=== PATIENT | female | born 1960 | race Caucasian/White ===

== ENCOUNTER 2024-01-11 09:30 | Outpatient (CLI) | payer BC, SELFPAY ==
[2024-01-11 18:57] LABS: Basophils # 0.2 K/mm3 (0-0.2); Basophils % 1.5 % (0.1-2.0); Eosinophils # 0.1 K/mm3 (0.0-0.4); Eosinophils % 1.2 % (0.1-12.0); Hematocrit 47.1 % (37.0-47.0); Lymphocytes # 6.2 K/mm3 (0.7-4.5); Lymphocytes % 55.8 % (10-50); MANUAL DIFFERENTIAL MANUAL DIFFERENTIAL (MANUAL DIFF); Mean Corpuscular HGB Conc 31.9 g/dL (31.8-35.4); Mean Corpuscular Hemoglobin 31.2 pg (27.0-31.2); Mean Corpuscular Volume 97.7 fl (81-99); Monocytes # 0.3 K/mm3 (0.1-1.0); Monocytes % 2.7 % (1.7-9.3); Neutrophils # 4.3 K/mm3 (1.8-7.8); Neutrophils % 38.7 % (37.0-80.0); Platelet Count 275 K/mm3 (142-424); Red Blood Count 4.82 M/mm3 (4.20-5.40); Red Cell Distribution Width 12.7 % (11.5-17.5); White Blood Count 11.2 K/mm3 (4.8-10.8)
[2024-01-11 19:33] LABS: Alanine Aminotransferase 44 U/L (12-78); Albumin Level 4.2 g/dl (3.5-5.0); Albumin/Globulin Ratio 1.6 (1.1-1.8); Alkaline Phosphatase 106 U/L (38-126); Anion Gap 13.7 mEq/L (5-15); Aspartate Amino Transferase 40 U/L (14-36); Bilirubin,Total 0.8 mg/dl (0.2-1.3); Blood Urea Nitrogen 12 mg/dl (7-17); Calcium 9.3 mg/dl (8.4-10.2); Carbon Dioxide 27 mmol/L (22.0-30.0); Chloride 102 mmol/L (98-107); Chol/HDL Ratio 3.2 (1-3.5); Cholesterol 165 mg/dl (140-200); Estimated Glomerular Filt Rate 101 ml/min (>60); GFR (African American) 122 ML/MIN (>60); Globulin 2.6 g/dL (1.3-3.2); Glucose 101 mg/dl (74-100); HDL Cholesterol 51 mg/dl (40-60); Potassium 3.7 mmoL/L (3.5-5.1); Sodium 139 mmol/L (136-145); Total Protein,Serum 6.8 g/dl (6.3-8.2); Triglycerides 119 mg/dl (30-150); VLDL Cholesterol 24 mg/dL (0-40)
[2024-01-11 19:45] LABS: Direct LDL Cholesterol 74.88 mg/dL (100-129)
[2024-01-11 19:54] LABS: Hemoglobin A1C 5.4 % (4.0-6.0)
[2024-01-11 20:03] LABS: Thyroid Stimulating Hormone 2.29 uIU/mL (0.465-4.68)
[2024-01-11 21:40] LABS: Eosinophils % 1 % (0-3); Lymphocytes % 65 % (10-50); Monocytes % 1 % (2-9); Neutrophils % 32 % (42-76); Total Cells Counted 100
[2024-01-11 21:41] LABS: Platelet Estimate Normal; RBC Morphology Normal
== END 2024-01-11 23:59 | disposition home or self-care (01) ==
LOC: LAB.DROPOF 01-12 09:30
PROVIDERS: PCP Family Medicine; Visit Provider Family Medicine
DX: E78.5 Hyperlipidemia, unspecified (principal); N39.0 Urinary tract infection, site not specified; I10 Essential (primary) hypertension; E66.3 Overweight; R53.83 Other fatigue; Z13.1 Encounter for screening for diabetes mellitus
CPT/HCPCS: 80050; 80053; 80061; 82306; 83036; 84443; 85007; 85025; 87086; 87088; 87186

== ENCOUNTER 2024-01-27 08:25 | Outpatient (CLI) | payer BC, SELFPAY ==
--- NOTE | 2024-01-27 08:34 | FL_ITS ---
FINAL REPORT CLINICAL HISTORY: hiatal hernia, GERD 1.18 min 74.38 mGy FINDINGS: BARIUM SWALLOW HISTORY: GERD, hiatal hernia. TECHNIQUE: The patient ingested barium contrast. Spot and overhead films were performed. A total of 14 images were saved. FINDINGS: The esophagus is unremarkable. No mucosal defects are seen. There is no hiatal hernia identified. There is mild esophageal dysmotility. No changes of esophagitis are evident. There is gastroesophageal reflux to the thoracic inlet. 13 mm barium tablet passes easily through the esoophagus and into the stomach. The patient did reflux the barium tablet back into the esophagus during the exam. FLUOROSCOPY TIME: 1 minute 18 seconds Radiation exposure in Total DAP: 74.38 uGym2 IMPRESSION: Mild esophageal dysmotility. Gastroesophageal reflux. Otherwise, unremarkable esophagram. Reviewed, Interpreted and Dictated by Jose Gibbs III, MD Transcribed by Dolly Montiel PA-C Authenticated and [facility]
[2024-01-27] MEDS: BARIUM SULFATE(LIQUID E-Z-PAQUE);355ML BOTTLE 355 ML PO (09:11)
[2024-01-27] MEDS: E-Z-GASII EFFERVESCENT GRANULES;1PK 1 EACH PO (09:11)
[2024-01-27] MEDS: BARIUM SULFATE (E-Z-HD 340GM);135ML BOTTLE 135 ML PO (09:11)
== END 2024-01-27 23:59 | disposition home or self-care (01) ==
LOC: RAD 08:29
PROVIDERS: PCP Family Medicine; Visit Provider Family Medicine
DX: K21.9 Gastro-esophageal reflux disease without esophagitis (principal); K44.9 Diaphragmatic hernia without obstruction or gangrene; R11.0 Nausea; R11.10 Vomiting, unspecified
CPT/HCPCS: 74220

== ENCOUNTER 2024-02-09 10:35 | Outpatient (CLI) | payer BC, SELFPAY | END 2024-02-09 23:59 | disposition home or self-care (01) | LOC: LAB.DROPOF 02-10 10:35 | PROVIDERS: PCP Nurse Practitioner Family; Visit Provider Nurse Practitioner Family | DX: N39.0 Urinary tract infection, site not specified (principal) | CPT/HCPCS: 87086 ==

== ENCOUNTER 2024-03-05 11:25 | Outpatient (CLI) | payer BC, SELFPAY ==
--- NOTE | 2024-03-05 11:26 | CT_ITS ---
FINAL REPORT TECHNIQUE: Axial imaging of the lumbar spine was obtained without contrast. Reformatted images were also obtained and reviewed.This study was performed with techniques to keep radiation doses as low as reasonably achievable, (ALARA). Individualized dose reduction techniques using automated exposure control or adjustment of mA and/or kV according to the patient's size were employed. CLINICAL HISTORY: LBP pt states she had prior MRI at [facility] & states she had 2 bulging discs FINDINGS: There is no acute fracture or subluxation. The vertebra are normal height. There is no malalignment. Facets are properly aligned. There is vacuum disc phenomenon from L3-4 through L5-S1. There is mild lumbar scoliosis convex to the right of approximately 15 degrees. A large, complex mass is seen posterior to the right kidney measuring 5.2 transverse, 3.8 AP and 10.0 cm in craniocaudad dimension. This is best seen on image 6 of series 6002. There appears to be some fat attenuation within this mass. There is a thickened capsule. The right kidney is anteriorly displaced. L1-2: Mild diffuse disc bulge with mild bilateral neuroforaminal narrowing. L2-3: Mild diffuse disc bulge with mild bilateral neuroforaminal narrowing. L3-4: Moderate diffuse disc bulge with moderate facet hypertrophy. There is moderate central canal stenosis and moderate bilateral neuroforaminal narrowing. L4-5: Moderate diffuse disc bulge with bilateral facet hypertrophy, right greater than left. High-grade right and mild to moderate left neuroforaminal narrowing. L5-S1: Mild to moderate diffuse disc bulge with endplate hypertrophy and moderate to high-grade bilateral neuroforaminal narrowing. IMPRESSION: 10 cm right retroperitoneal mass. Recommend CT of the abdomen and pelvis with contrast for further evaluation. Multilevel changes of degenerative disc disease with neuroforaminal narrowing most evident on the right at L4-5. Reviewed, Interpreted and Dictated by Patrick Rodriguez MD Transcribed by Terri Liao Authenticated and . [facility]
== END 2024-03-05 23:59 | disposition home or self-care (01) ==
LOC: RAD 11:26
PROVIDERS: PCP Family Medicine; Visit Provider Nurse Practitioner Family
DX: M54.9 Dorsalgia, unspecified (principal); G89.29 Other chronic pain
CPT/HCPCS: 72131

== ENCOUNTER 2024-04-13 15:28 | Emergency (ER) | payer BC, SELFPAY ==
[2024-04-13 15:53] VITALS: BP 146/64; PULSE 63; RESP 20; TEMP 36.8; O2SAT 97; BMI 37.5
--- NOTE | 2024-04-13 15:57 | XR_ITS ---
PROCEDURE INFORMATION: Exam: XR Facial Bones, Minimum of 3 Views, Complete Exam date and time: 04/13/2024 4:03 PM Age: 63 years old Clinical indication: Injury or trauma; Fall; Blunt trauma (contusions or hematomas); Forehead and nose and other: Chin; Additional info: Fall, face to sidewalk TECHNIQUE: Imaging protocol: XR of the facial bones, minimum of 3 views. Complete exam. COMPARISON: RF FL BARIUM SWALLOW 01/27/2024 8:57 AM FINDINGS: Sinuses: Well aerated. Bones/joints: No fracture. Soft tissues: Unremarkable. IMPRESSION: Unremarkable.
--- NOTE | 2024-04-13 16:20 | ED_ITS ---
Discharge Plan Disposition Patient Disposition: Home, Self-Care Prescriptions Prescriptions: No Action diclofenac sodium 1 % gel topical ezetimibe 10 mg tablet 10 mg PO DAILY metoprolol succinate 50 mg tablet extended release 24 hr 50 mg PO ONCE methylprednisolone [Medrol (Terrence)] 4 mg tablets,dose pack See Rx Instructions PO PER PKG DIR Qty: 21 0RF Rx Instructions: PO PER PKG DIR for 6 days hydrochlorothiazide 12.5 mg capsule 12.5 mg PO DAILY famotidine 20 mg tablet 20 mg PO DAILY trazodone 50 mg tablet 50 mg PO DAILY pravastatin 10 mg tablet 10 mg PO DAILY pramipexole 0.5 mg tablet 0.5 mg PO DAILY fluticasone propionate 50 mcg/actuation spray,suspension 1 spray intranasal DAILY Rx Instructions: administer into each nostril metoprolol tartrate 50 mg tablet 50 mg PO BID amlodipine 10 mg tablet 10 mg PO DAILY Qty: 30 3RF sertraline [Zoloft] 50 mg tablet 50 mg PO DAILY Qty: 30 3RF Referrals Follow up/Referrals: Ester Longoria APRN [Primary Care Provider] - See instructions Activity Restrictions/Add. Instructions Additional Instructions/Restrictions: Ice to forehead and nose 20 minutes every couple hours to help with pain and swelling Over the counter Motrin and/or Tylenol if you can take them for pain Neosporin on abrasion on chin Follow up with your Family Doctor if needed Straight to ER if worse headache of your life, changes in behavior or any life threatening symptoms Clinical Impressions Clinical Impression: Fall Instructions Patient Instructions: DI for Laceration Repair-Skin Closure Strips, DI for Contusion Print Language Print Language: Lebanese Discharge ED Provider[place] Karlie Hi [facility] [place] General Stated complaint: AO 04/13/24 1500 fell injury to face Mode of Arrival: Ambulatory Source of Information: Patient Time Seen by Provider: 04/13/24 16:21 Description of Symptoms (Recalled from Triage Doc. by RN): FELL ON SIDEWALK ONTO FACE, ABRAISIONS TO FACE AND KNOT ON FOREHEAD HEENT Symptoms (Recalled from RN notes): No Resp Symptoms (Recalled from RN notes): No Skin Symptoms (Recalled from RN notes): Yes MS Symptoms (Recalled from RN notes): No Functional Status (Recalled from RN notes): WNL History of Present Illness Provider Complaint: Patient states that she tripped and fell on the sidewalk and has multiple abrasions to face States that she thinks she may have broken her nose and has a abrasion on her chin and small laceration on her forehead States that she did not having LOC, aware of surroundings and came in to get checked worried she may have broken her nose Denies any other injury Related Data Home Medications ?Medication ?Instructions ?Recorded ?Confirmed famotidine 20 mg tablet 20 mg PO DAILY 01/11/24 04/13/24 fluticasone propionate 50 1 spray intranasal DAILY 01/11/24 02/28/24 mcg/actuation nasal spray,suspension hydrochlorothiazide 12.5 mg capsule 12.5 mg PO DAILY 01/11/24 04/13/24 metoprolol tartrate 50 mg tablet 50 mg PO BID 01/11/24 04/13/24 pramipexole 0.5 mg tablet 0.5 mg PO DAILY 01/11/24 04/13/24 pravastatin 10 mg tablet 10 mg PO DAILY 01/11/24 04/13/24 trazodone 50 mg tablet 50 mg PO DAILY 01/11/24 04/13/24 diclofenac sodium 1 % topical gel topical 02/20/24 02/28/24 ezetimibe 10 mg tablet 10 mg PO DAILY 02/20/24 02/28/24 metoprolol succinate 50 mg 50 mg PO ONCE 02/20/24 02/28/24 tablet,extended release 24 hr Previous Rx's ?Medication ?Instructions ?Recorded amlodipine 10 mg tablet 10 mg PO DAILY #30 tabs 02/09/24 sertraline 50 mg tablet (Zoloft) 50 mg PO DAILY #30 tabs 02/09/24 methylprednisolone 4 mg tablets in See Rx Instructions PO PER PKG DIR 02/20/24 a dose pack (Medrol (Terrence)) #21 tabs Allergies Allergy/AdvReac Type Severity Reaction Status Date / Time acetaminophen (From Percocet) Allergy Mild Rash Verified 02/28/24 13:21 alprazolam (From Xanax) AdvReac Mild Agitated Verified 02/28/24 13:21 oxycodone AdvReac Mild Other Verified 02/28/24 13:21 Worker's Comp Is this a Worker's Comp case?: No [facility] Disclaimer: The information contained in this section may have been updated after the patient was seen, as this information can be updated by other users. 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) Surgical History (Updated 02/20/24 @ 10:30 by Edwardo Flores MA) History of hip replacement Total knee replacement status History of appendectomy Social History Smoking Status: Never smoker alcohol intake: former substance use type: denies use current occupational status: disabled ROS Obtained: Yes All systems reviewed & no additional complaints except as documented and Yes Systems reviewed as appropriate & no additional complaints except as documented Constitutional Constitutional: Reports system reviewed and no additional complaints, except as documented, Reports as per HPI and Denies headache(s) Eyes Eyes: Reports system reviewed and no additional complaints, except as documented, Reports as per HPI, Denies blurry vision, Denies change in vision, Denies loss of vision, Denies sensitivity to light and Denies photophobia ENT Ears, Nose, Mouth, and Throat: Reports system reviewed and no additional complaints, except as documented, Reports as per HPI, Denies disequilibrium, Denies dizziness and Denies headache(s) Cardiovascular Cardiovascular: Reports system reviewed and no additional complaints, except as documented, Reports as per HPI and Denies syncope Respiratory Respiratory: Reports system reviewed and no additional complaints, except as documented and Reports as per HPI Gastrointestinal Gastrointestingal: Reports system reviewed and no additional complaints, except as documented and as per HPI Musculoskeletal Musculoskeletal: Denies abnormal gait Integumentary/Breasts Skin/Breast: Reports system reviewed and no additional complaints, except as documented, Reports as per HPI and Reports other Comments: abrasion on chin, swelling and bruising to nose, small contusion on forehead with small laceration Neurologic Neurologic: Reports system reviewed and no additional complaints, except as documented, Reports as per HPI, Denies abnormal gait, Denies abnormal speech, Denies behavioral changes, Denies confusion, Denies disequilibrium, Denies dizziness, Denies headache(s), Denies loss of vision and Denies syncope Physical Exam General General appearance: alert and in no apparent distress Head Head exam: other Expanded Head Exam Head image: 2 1. small laceration noted no active bleeding, small hematoma 2. abrasion noted 3. swelling and bruising noted, denies trouble breathing no active bleeding noted Eye Eye exam: Present normal appearance, PERRL and EOMI ENT ENT exam: Present normal exam, normal oropharynx and mucous membranes moist Expanded ENT Exam Mouth exam: Present other (several small cuts noted inside lower lip no active bleeding states bite her lip in fall ) Respiratory Respiratory exam: Present normal lung sounds bilaterally; Absent respiratory distress or wheezes Cardiovascular Cardiovascular exam: Present regular rate, normal rhythm and normal heart sounds Neurological Exam Neurological exam: Present alert, oriented X3 and normal gait Medical Decision Making Medical Records Screening: Per USPSTF and CDC recommendations, given the prevalence of disease in our region, it is our hospital?s policy to screen for HIV and viral Hepatitis for all patients aged 18 and over and those with ongoing risk factors. Jesus Alberto Inquiry Pt receiving controlled substance: No Jesus Alberto was queried for this patient: No Vital Signs: 04/13/24 15:53 Temperature 98.2 F Temperature Source Oral Pulse Rate [Left Radial] 63 Respiratory Rate 20 Blood Pressure [Left Arm] 146/64 H Blood Pressure Mean [Left Arm] 91 02 Sat by Pulse Oximetry 97 Orders (Tests/Meds): ORDERS Category Date Time Status Facial bones XR minimum 3 views [XR facial bones min 3V Exams 04/13/24 15:57 Taken ] Stat Radiology Data #1: Image(s): Facial Bones Image Reviewed: Yes I have reviewed radiologist's interpretation FINDINGS: Sinuses: Well aerated. Bones/joints: No fracture. Soft tissues: Unremarkable. IMPRESSION: Unremarkable. Medical Decision Narrative: discussed transfer to the ED for more extensive imaging and she declined states she feels fine, denies headache Procedures Laceration Laceration 1: Site: face Side (If applicable): left Size (cm): 0.5 Description: linear Depth: simple, single layer Pre-repair: irrigated extensively Skin layer closed with: other (steri strip placed superficial laceration )
[2024-04-13 17:25] VITALS: BP 146/64; PULSE 63; RESP 20; TEMP 36.8
== END 2024-04-13 17:26 | disposition home or self-care (01) ==
PROVIDERS: Emergency Provider Nurse Practitioner; PCP Family Medicine
DX: S01.419A Laceration without foreign body of unspecified cheek and temporomandibular area, initial encounter (principal); W19.XXXA Unspecified fall, initial encounter
CPT/HCPCS: 70150; 99213; G0381

== ENCOUNTER 2024-04-30 10:41 | Day surgery (SDC) | payer BC, SELFPAY ==
[2024-04-24 17:15] VITALS: BMI 37.8
[2024-04-30 11:25] VITALS: BP 132/70; PULSE 72; RESP 17; TEMP 36.2; O2SAT 96
[2024-04-30] MEDS: LACTATED RINGERS 1000ML 1,000 ML 25 ML IV (11:45)
--- NOTE | 2024-04-30 12:02 | EXP.ANES.CKL ---
[facility] Disclaimer: The information contained in this section may have been updated after the patient was seen, as this information can be updated by other users. Medical History Kidney mass TIA (transient ischemic attack) Cardiac arrest COVID-19 Hypertension Stroke GBS (Guillain [place] syndrome) Surgical History History of bunionectomy H/O shoulder surgery History of hip replacement Total knee replacement status History of appendectomy Family History Other Hypertension Social History Smoking Status: Never smoker alcohol intake: current substance use type: denies use current occupational status: disabled Travel in the last 8 weeks: None [facility] Anesthesia Checklist Patient Identification Patient Identification: Verbal (Name & ) Structural Data Admitted From: Home Planned Operative Procedure/s: egd Consent for Planned Operative Procedure(s) Verified: Yes NPO Status Verified Time NPO: 00:00 Airway Assessment Mallampati Score:: Class II C-Spine Mobility Assessed: Yes TMJ Mobility Assessed: Yes Dentition: Poor Dentition (chipped front tooth) Neurological Assessment Level of Consciousness: Awake, Alert and Appropriate Anesthesia Plan Anesthesia Risk discussed: Yes Anesthesia Plan: Verified ASA Class: III Anesthesia Type: MAC
--- NOTE | 2024-04-30 12:21 | EXP.HP ---
History of Present Illness *Admission Date: 04/30/24 *Reason for visit:: GERD, dyspepsia, nausea and vomiting *History of present illness: Mrs. Julien is a 63-year-old female who is here for diagnostic upper endoscopy secondary to dyspepsia, nausea, vomiting and GERD. She also has some dysphagia. The examination is deemed medically necessary for diagnostic EGD. The patient has been seen, interviewed and examined prior to the procedure by both myself and the anesthesia provider. [facility] Disclaimer: The information contained in this section may have been updated after the patient was seen, as this information can be updated by other users. Medical History (Updated 04/30/24 @ 12:23 by Rony Weston II, MD) Kidney mass TIA (transient ischemic attack) Cardiac arrest COVID-19 Hypertension Stroke GBS (Guillain [place] syndrome) Surgical History History of bunionectomy H/O shoulder surgery History of hip replacement Total knee replacement status History of appendectomy Family History Other Hypertension Social History Smoking Status: Never smoker alcohol intake: current substance use type: denies use current occupational status: disabled Travel in the last 8 weeks: None Other Medical History Have you received the Pneumonia Vaccine: Yes Review of Systems Review of Systems Review of systems (narrative): Negative *Cardiovascular Comments: Negative *Gastrointestinal Comments: Negative *Genitourinary Comments: Negative *Musculoskeletal Comments: Negative *Neurologic Comments: Negative Meds Home Medications and Allergies Home Medications ?Medication ?Instructions ?Recorded ?Confirmed ?Type famotidine 20 mg tablet 20 mg PO DAILY 01/11/24 04/27/24 History fluticasone propionate 50 1 spray intranasal DAILY 01/11/24 04/27/24 History mcg/actuation nasal spray,suspension hydrochlorothiazide 12.5 mg capsule 12.5 mg PO DAILY 01/11/24 04/27/24 History pramipexole 0.5 mg tablet 0.5 mg PO DAILY 01/11/24 04/27/24 History pravastatin 10 mg tablet 10 mg PO DAILY 01/11/24 04/27/24 History trazodone 50 mg tablet 50 mg PO DAILY 01/11/24 04/27/24 History amlodipine 10 mg tablet 10 mg PO DAILY #30 tabs 02/09/24 04/27/24 Rx sertraline 50 mg tablet (Zoloft) 50 mg PO DAILY #30 tabs 02/09/24 04/27/24 Rx diclofenac sodium 1 % topical gel 1 ea topical TIDP PRN . 02/20/24 04/27/24 History ezetimibe 10 mg tablet 10 mg PO DAILY 02/20/24 04/27/24 History metoprolol succinate 50 mg 50 mg PO BID 02/20/24 04/27/24 History tablet,extended release 24 hr New Prescriptions to Start Prescriptions: Allergies Allergy/AdvReac Type Severity Reaction Status Date / Time acetaminophen (From Percocet) Allergy Mild Rash Verified 04/30/24 11:23 alprazolam (From Xanax) AdvReac Mild Agitated Verified 04/30/24 11:23 oxycodone AdvReac Mild Other Verified 04/30/24 11:23 Exam Data for Last 24 hours Vital signs and Labs for Last 24 Hours: Temp Pulse Resp BP Pulse Ox O2 Del Method 97.2 F L 72 17 132/70 96 Room Air 04/30/24 11:25 04/30/24 11:25 04/30/24 11:25 04/30/24 11:25 04/30/24 11:25 04/30/24 11:25 *Routine HEENT Exam Head: Present normocephalic Eye: Present EOMI and PERRL ENT: Present mucous membranes moist *Routine Neck Exam Neck: Present supple *Routine Respiratory Exam Respiratory: Present CTA bilaterally *Routine Cardiovascular Exam Cardiovascular: Present RRR *Routine Abdominal Exam Abdominal: Present soft and normoactive bowel sounds; Absent tenderness *Routine Rectal Exam Rectal:: deferred *Routine Genitalia Exam Genitalia:: deferred *Routine Extremities Exam Extremities: Absent cyanosis, clubbing or edema *Routine Skin Exam Skin: Present warm; Absent rash *Routine Neurological Exam Neurological: Present alert and oriented X3 Assessment and Plan *Assessment and plan (1) Nausea & vomiting: Status: Acute Category: Medical Code(s): R11.2 - Nausea with vomiting, unspecified (2) Epigastric pain: Status: Acute Category: Medical Code(s): R10.13 - Epigastric pain (3) Dysphagia: Status: Acute Category: Medical Code(s): R13.10 - Dysphagia, unspecified (4) Acid reflux: Status: Acute Category: Medical Code(s): K21.9 - Gastro-esophageal reflux disease without esophagitis (5) Dyspepsia: Status: Acute Category: Medical Code(s): R10.13 - Epigastric pain Plan A/P: 1. Dyspepsia with epigastric abdominal pain, nausea, vomiting and dysphagia is the preprocedural diagnosis. The patient will be anesthetized/sedated using MAC sedation. The patient has been seen and examined. Cardiac and lung assessment prior to the examination is stable. Proceed with planned EGD
--- NOTE | 2024-04-30 12:24 | P.PCN_ITS ---
[facility] Procedure Note Date: 04/30/24 Time: 12:42 Procedure Note:: Upper Endoscopy Procedure Report: Esophagogastroduodenoscopy with cold biopsies and TTS balloon dilation Endoscopost: Rony Weston II, MD Referring Physician: NORM Grijalva Date of Procedure: April 30, 2024 Equipment: Olympus GIF 190 standard upper endoscope Sedation: MAC sedation Indications: Mrs. Julien is a 63-year-old female who is here for diagnostic upper endoscopy secondary to dyspepsia with epigastric abdominal pain, nausea, vomiting and some early satiety. She is on famotidine and omeprazole. Her symptoms have been getting worse. She reports heartburn, reflux and some dysphagia. She had an EGD 13 years ago at which time she was told that she had a hiatal hernia. She does state that swallowing food and some pills feel like they are getting hung up and she may have some painful swa llowing. Procedure: Prior to the procedure, a history and physical exam was performed, and patient's medications and allergies were reviewed. The risks, benefits and alternatives of the sedation and procedure were discussed with the patient. All questions were answered and informed consent was obtained. The patient was brought to the procedure room. Patient identification and proposed procedure were verified by the physician and the nurse. The patient was placed in a left lateral decubitus position and the scope was passed under direct vision. Throughout the procedure, the patient's blood pressure, pulse, and oxygen saturations were monitored continuously. The upper GI endoscopy was accomplished without difficulty. The patient tolerated the procedure well. Findings: The scope was passed directly into the upper esophagus and advanced to the third portion of the duodenum. The post bulbar duodenum and duodenal bulb were normal with normal mucosa and conniventes. The scope was withdrawn through a normal duodenal bulb and pylorus into the stomach. There was evidence of linear reactive gastropathy of the antrum. The body and fundus of the stomach were normal. Upon retroflexion there was a very small 1 to 2 cm sliding hiatal hernia. Cold biopsies were taken from the antrum. The scope was then withdrawn into the esophagus. There was no evidence of reflux esophagitis or Juárez's. There was no rings or strictures. There was no corrugation or furrowing. There were tertiary contractions and evidence of moderate esophageal dysmotility. The entire esophagus was dilated to 60 [place]/20 mm with a TTS hydrostatic balloon. There was some resistance at the cricopharyngeus. The remainder of the esophageal mucosa was normal. Impression: 1. Cricopharyngeal spasm status post dilation to 20 mm 2. Nonerosive GERD with moderate esophageal dysmotility and very small sliding 1 to 2 cm hiatal hernia 3. Linear reactive gastropathy of antrum Plan: I will follow-up the biopsies. The patient does have functional dyspepsia and functional GERD. We will discuss additional dietary measures and treatment options.
[2024-04-30 12:29] VITALS: O2SAT 100
[2024-04-30 12:45] VITALS: BP 159/76; PULSE 78; RESP 16; O2SAT 92
[2024-04-30 12:55] VITALS: BP 129/76; PULSE 79; RESP 16; O2SAT 100
[2024-04-30 13:05] VITALS: BP 124/71; PULSE 67; RESP 17; O2SAT 99
[2024-04-30 13:15] VITALS: BP 129/73; PULSE 61; RESP 17; O2SAT 94
== END 2024-04-30 13:35 | disposition home or self-care (01) ==
PROVIDERS: PCP Family Medicine; Visit Provider Internal Medicine Gastroenterology
PROC: 0DJ08ZZ Inspection of Upper Intestinal Tract, Via Natural or Artificial Opening Endoscopic (ICD-10-PCS; CPT 43235; principal; 2024-04-30 12:30)
DX: R11.2 Nausea with vomiting, unspecified (principal); R13.10 Dysphagia, unspecified; K21.9 Gastro-esophageal reflux disease without esophagitis; K30 Functional dyspepsia; R68.81 Early satiety; K44.9 Diaphragmatic hernia without obstruction or gangrene; K22.9 Disease of esophagus, unspecified; J39.2 Other diseases of pharynx; K31.9 Disease of stomach and duodenum, unspecified
CPT/HCPCS: 43239; 43249; C1726; J7120

== ENCOUNTER 2024-05-18 14:03 | Outpatient (CLI) | payer BC, SELFPAY ==
--- NOTE | 2024-05-18 14:08 | CA_ITS ---
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, SUDDEN CARDIAC 2D Dimensions Left Atrium 4.57 cm LVEF (Mccollum's) 51.80 % LVOT 1.70 cm (M/F) 1.5-2.5 LV Volume 121.40 mL LA Volume 65.40 mL LA Volume Index 33.50 mL/m2 (M/F) 16-34 EF AP4 52.50 % EF AP2 51.9 % EF BP 51.8 % GL Strain -14.6 % M-Mode Dimensions RVDd 2.76 cm (0.9-2.6) LVDd 5.05 cm (3.5-5.7) Ao Diam 3.28 cm (2.0-3.7) LVDs 3.19 cm (3.5-5.7) IVSd 1.45 cm (0.6-1.1) PWd 0.84 cm (0.6-1.1) EF (Teich) 66.40% FS 36.80% EDV (Teich) 121.00 mL TAPSE 2.14 (<1.7) ESV (Teich) 40.60 mL LV Diastology E Decel Time 178 (160-240 msec) E/A Ratio 1.43 MED E' 11.5 (>= 7 cm/sec) MED A' 9.70 cm/s E'/MED E' Ratio 8.59 (<= 14) LAT E' 10.8 (>= 10 cm/sec) LAT A' 7.30 cm/s E/LAT E' Ratio 9.15 (<= 14) Aortic Valve LVOT Max 223.0 (70-110 cm/s) LIAM Index 1.12 cm2/m2 LVOT VTI 50.68 cm AoV Peak Robin. 223.0 (50-130 cm/s) AO Peak GR. 19.30 mmHg AO Mean GR. 11.50 (<5 mmHg) AO VTI 52.5 (18-25 cm) LIAM (VTI) 2.19 (2.5-4.5 cm2) Mitral Valve MV E Max Robin. 99.0 (40-130 cm/s) MV A Velocity 69.0 (40-130 cm/s) E/A Ratio 1.43 MV Decel. Time 178 (160-240 ms) Tricuspid Valve TR P. Velocity 262.00 cm/s RAP Estimate 10.00 mmHg RVSP 37.60 mmHg Left Ventricle The left ventricle is normal size. The left ventricular systolic function is normal. The left ventricular ejection fraction is within the normal range. There is increased overall thickness. There is normal LV segmental wall motion. The left ventricular diastolic function is normal. LVEF is 55%. Right Ventricle Right ventricle is mildly dilated. The right ventricular systolic function is normal. Atria Left atrium is moderately dilated. The right atrium size is normal. There is no Doppler evidence of interatrial shunt. Aortic Valve The aortic valve is mildly thickened. Mild aortic stenosis is present. LIAM by continuity equation is 1.7 cm???. Peak velocity 2.4 m/s. Mean AV gradient 13 mmHg. Max AV gradient 23 mmHg. Trace aortic regurgitation. Mitral Valve Mild mitral annular calcification. The mitral valve leaflets are mildly thickened. No evidence of mitral valve stenosis. Mild mitral regurgitation. Tricuspid Valve Tricuspid valve is grossly normal in structure and function. Mild tricuspid regurgitation. RVSP is 25-30 mmHg. Pulmonic Valve The pulmonary valve is normal in structure. Trace pulmonic regurgitation. Great Vessels The aortic root is normal in size. IVC is normal in size and collapses >50% with inspiration. Pericardium There is no pericardial effusion. Other Information Study Quality: Fair Conclusion Normal biventricular systolic function. Mild RV dilation. Moderate LA dilation. Mild (LIAM by continuity equation is 1.7 cm???. Peak velocity 2.4 m/s. Mean AV gradient 13 mmHg. Max AV gradient 23 mmHg). Mild MR, mild TR. Electronically signed by : Evelyn Trujillo MD 06/01/2024 11:35:23
== END 2024-05-18 23:59 | disposition home or self-care (01) ==
LOC: RT 14:04
PROVIDERS: PCP Family Medicine; Visit Provider Nurse Practitioner
DX: I51.7 Cardiomegaly (principal); I34.0 Nonrheumatic mitral (valve) insufficiency; I36.1 Nonrheumatic tricuspid (valve) insufficiency; Z86.73 Personal history of transient ischemic attack (TIA), and cerebral infarction without residual deficits; Z86.74 Personal history of sudden cardiac arrest; Z86.69 Personal history of other diseases of the nervous system and sense organs
CPT/HCPCS: 93306

== ENCOUNTER 2024-06-04 15:29 | Outpatient (CLI) | payer BC, SELFPAY ==
[2024-06-06 10:10] LABS: Pancreatic Elastase, Fecal 215 (>200)
== END 2024-06-04 23:59 | disposition home or self-care (01) ==
LOC: LAB 15:30
PROVIDERS: PCP Family Medicine; Visit Provider Internal Medicine Gastroenterology
DX: R10.13 Epigastric pain (principal); R14.0 Abdominal distension (gaseous)
CPT/HCPCS: 82656

== ENCOUNTER 2024-07-13 13:35 | Outpatient (CLI) | payer MEDICARE, BC, SELFPAY ==
[2024-07-13 18:10] LABS: Basophils # 0.1 K/mm3 (0-0.2); Basophils % 1.3 % (0.1-2.0); Eosinophils # 0.2 K/mm3 (0.0-0.4); Eosinophils % 1.6 % (0.1-12.0); Hematocrit 39.2 % (37.0-47.0); Hemoglobin 13.2 g/dL (12.2-16.2); Lymphocytes # 6.2 K/mm3 (0.7-4.5); Lymphocytes % 64.7 % (10-50); Mean Corpuscular HGB Conc 33.7 g/dL (31.8-35.4); Mean Corpuscular Hemoglobin 30.5 pg (27.0-31.2); Mean Corpuscular Volume 90.5 fl (81-99); Mean Platelet Volume 9.4 fl (7.4-10.4); Monocytes # 0.4 K/mm3 (0.1-1.0); Neutrophils # 2.7 K/mm3 (1.8-7.8); Neutrophils % 28.1 % (37.0-80.0); Platelet Count 210 K/mm3 (142-424); Red Blood Count 4.33 M/mm3 (4.20-5.40); Red Cell Distribution Width 10.9 % (11.5-17.5); White Blood Count 9.6 K/mm3 (4.8-10.8)
[2024-07-13 18:11] LABS: MANUAL DIFFERENTIAL MANUAL DIFFERENTIAL (MANUAL DIFF)
[2024-07-13 18:39] LABS: Eosinophils % 1 % (0-3); Lymphocytes % 61 % (10-50); Monocytes % 8 % (2-9); Neutrophils % 28 % (42-76); Platelet Estimate Normal; RBC Morphology Normal; Total Cells Counted 100
[2024-07-13 18:42] LABS: Albumin Level 4.2 g/dl (3.5-5.0); Chloride 100 mmol/L (98-107); Potassium 3.9 mmoL/L (3.5-5.1); Sodium 137 mmol/L (136-145)
[2024-07-13 18:43] LABS: Band Neutrophils % 1 (0-8)
[2024-07-13 18:44] LABS: Alanine Aminotransferase 41 U/L (12-78); Blood Urea Nitrogen 16 mg/dl (7-17); Estimated Glomerular Filt Rate 84 ml/min (>60); GFR (African American) 102 ML/MIN (>60)
[2024-07-13 18:45] LABS: Albumin/Globulin Ratio 2.2 (1.1-1.8); Alkaline Phosphatase 102 U/L (38-126); Anion Gap 12.9 mEq/L (5-15); Aspartate Amino Transferase 42 U/L (14-36); Bilirubin,Total 0.7 mg/dl (0.2-1.3); Calcium 8.9 mg/dl (8.4-10.2); Carbon Dioxide 28 mmol/L (22.0-30.0); Globulin 1.9 g/dL (1.3-3.2); Glucose 95 mg/dl (74-100); Magnesium 2.1 mg/dl (1.6-2.3); Total Protein,Serum 6.1 g/dl (6.3-8.2)
[2024-07-13 18:53] LABS: NT Pro Brain Natriuretic Pep. 181 pg/mL (0-125)
[2024-07-13 19:14] LABS: Thyroid Stimulating Hormone 1.14 uIU/mL (0.465-4.68)
[2024-07-13 20:18] LABS: Vitamin B12 946 pg/mL (239-931)
== END 2024-07-13 23:59 | disposition home or self-care (01) ==
LOC: LAB.DROPOF 07-14 11:44
PROVIDERS: PCP Family Medicine; Visit Provider Family Medicine
DX: M79.89 Other specified soft tissue disorders (principal); R25.2 Cramp and spasm
CPT/HCPCS: 80053; 82607; 83735; 83880; 84443; 85007; 85025; 85027

== ENCOUNTER 2024-08-22 11:11 | Outpatient (CLI) | payer MEDICARE, BC, SELFPAY ==
--- NOTE | 2024-08-22 11:00 | CA_ITS ---
FINAL REPORT CLINICAL HISTORY: HTN, Obesity COMPARISON: None FINDINGS: DOPPLER RENAL VESSELS HISTORY: Hypertension . FINDINGS: Intrarenal resistive indices on the right are 0.62-0.71, normal. Intrarenal resistive indices on the left are 0.67-0.71, normal . Right main renal artery systolic velocity: 192 cm/sec. Aortic-right renal artery flow velocity ratio: 2.2 COMMENT: No evidence of hemodynamically significant renal artery stenosis . Left main renal artery systolic velocity: 156 cm/sec. Aortic-left renal artery flow velocity ratio: 1.8 COMMENT: No evidence of hemodynamically significant renal artery stenosis . IMPRESSION: Less than 50% stenosis in the renal arteries bilaterally. The kidneys are normal in size and symmetric. CTA or gadolinium-enhanced MR may be considered as a more sensitive exam. Alternatively noncontrast MRI may be considered for assessing main renal arteries for stenosis as a more sensitive exam if the patient has renal insufficiency. Reviewed, Interpreted and Dictated by Quan Pimentel MD Transcribed by Yissel Shepherd Authenticated and [facility]
== END 2024-08-22 23:59 | disposition home or self-care (01) ==
LOC: RT 11:12
PROVIDERS: PCP Family Medicine; Visit Provider Family Medicine
DX: I10 Essential (primary) hypertension (principal)
CPT/HCPCS: 93976

== ENCOUNTER 2024-10-23 09:23 | Outpatient (CLI) | payer MEDICARE, BC, SELFPAY ==
[2024-10-23 12:39] LABS: Microscopic, Urine URINE MICROSCOPIC (MICROSCOPIC)
[2024-10-23 12:49] LABS: Appearance,Urine CLEAR (Clear); Bilirubin,Urine Negative (Negative); Blood, Urine Negative (Negative); Color,Urine YELLOW (Yellow); Glucose,Urine (UA) Negative (Negative); Ketones,Urine Negative (Negative); Leukocyte Esterase,Urine Negative (Negative); Nitrate,Urine Negative (Negative); Protein,Urine Negative (Negative); Specific Gravity, Urine >= 1.030 (1.005-1.030); Urobilinogen,Urine 0.2 EU/dl (0.2)
[2024-10-23 13:05] LABS: Bacteria,Urine Trace /lpf; Basophils # 0.2 K/mm3 (0-0.2); Basophils % 1.6 % (0.1-2.0); Eosinophils # 0.6 Kmm3 (0.0-0.4); Eosinophils % 4.7 % (0.1-12.0); Hematocrit 41.3 % (37.0-47.0); Hemoglobin 13.5 g/dL (12.2-16.2); Immature Granulocytes # 0.02 10^3uL; Immature Granulocytes % 0.2 %; Lymphocytes % 69.6 % (10-50); Mean Corpuscular HGB Conc 32.7 g/dL (31.8-35.4); Mean Corpuscular Hemoglobin 30.7 pg (27.0-31.2); Mean Corpuscular Volume 93.9 fl (81-99); Mean Platelet Volume 9.8 fl (7.4-10.4); Monocytes # 0.5 K/mm3 (0.1-1.0); Monocytes % 3.7 % (1.7-9.3); Neutrophils # 2.6 K/mm3 (1.8-7.8); Neutrophils % 20.2 % (37.0-80.0); Nucleated Red Blood Cells # 0 10^3/uL; Nucleated Red Blood Cells % 0 %; Platelet Count 212 K/mm3 (142-424); Red Cell Distribution Width 11.9 % (11.5-17.5); Red Cell Distribution Width-SD 40.9 fL; WBC,Urine 20-50 #/hpf (0-3); White Blood Count 12.9 K/mm3 (4.8-10.8)
[2024-10-23 13:07] LABS: MANUAL DIFFERENTIAL MANUAL DIFFERENTIAL (MANUAL DIFF)
[2024-10-23 13:50] LABS: Eosinophils % 2 % (0-3); Lymphocytes % 61 % (10-50); Monocytes % 9 % (2-9); Neutrophils % 28 % (42-76); Platelet Estimate Normal; RBC Morphology Normal; Total Cells Counted 100
[2024-10-23 13:57] LABS: Alanine Aminotransferase 34 U/L (12-78); Albumin Level 4.1 g/dl (3.5-5.0); Alkaline Phosphatase 101 U/L (38-126); Amylase 48 U/L (30-110); Anion Gap 11.4 mEq/L (5-15); Aspartate Amino Transferase 34 U/L (14-36); Bilirubin,Total 0.7 mg/dl (0.2-1.3); Blood Urea Nitrogen 17 mg/dl (7-17); Carbon Dioxide 31 mmol/L (22.0-30.0); Chloride 106 mmol/L (98-107); Chol/HDL Ratio 5.4 (1-3.5); Cholesterol 225 mg/dl (140-200); Estimated Glomerular Filt Rate 101 ml/min (>60); GFR (African American) 122 ML/MIN (>60); Globulin 2.1 g/dL (1.3-3.2); Glucose 79 mg/dl (74-100); HDL Cholesterol 42 mg/dl (40-60); Lipase 57 U/L (23-300); Magnesium 2.2 mg/dl (1.6-2.3); Phosphorous 3.4 mg/dl (2.5-4.5); Potassium 4.4 mmoL/L (3.5-5.1); Sodium 144 mmol/L (136-145); Total Protein,Serum 6.2 g/dl (6.3-8.2); Triglycerides 325 mg/dl (30-150); VLDL Cholesterol 65 mg/dL (0-40)
[2024-10-23 14:06] LABS: Iron 87 ug/dL (37-170)
[2024-10-23 14:07] LABS: C-Reactive Protein 8.1 mg/L (0-4); Direct LDL Cholesterol 113.15 mg/dL (100-129)
[2024-10-23 14:08] LABS: Intact Parathyroid Hormone 88.7 pg/mL (7.5-53.5)
[2024-10-23 14:16] LABS: 25-OH Vitamin D, Total 42.5 ng/mL (30-100); Free T4 (Free Thyroxine) 0.95 ng/dl (0.78-2.19); Total Iron Binding Capacity 269 ug/dL (265-497)
[2024-10-23 14:27] LABS: Thyroid Stimulating Hormone 3.83 uIU/mL (0.465-4.68)
[2024-10-23 14:43] LABS: Ferritin 144 ng/ml (11.1-264)
[2024-10-23 14:47] LABS: Vitamin B12 > 1000 pg/mL (239-931)
[2024-10-23 15:01] LABS: Hemoglobin A1C 5.3 % (4.0-6.0)
[2024-10-24 09:13] LABS: Thyroid Peroxidase Antibodies 11 IU/mL (0-34)
--- OUTSIDE RECORDS SUMMARY | 2024-10-24 11:12 | XMS_ITS | Data Portability ---
Author Organization [place] - [facility] ADMIN Address [address] [place] [address] Care Team Providers Care Statistical Programmer Name Role Phone [facility] Primary Care Provider Assessment No assessment recorded. Plan of Treatment Reminders Order Date Submit Date Provider Last Modified By Organization Details Last Modified Time Details Appointments OV EST 15 2025 03:30P M Estefany Chavis NP Not available Not available Not available Lab urinalysi s, dipstick 2023 024 [email or web address] [facility] Urology-100, [address] [facility] [address], [place], [address], 05/07/2024 16:04:32 urinalysi s, dipstick 2023 024 [email or web address] [facility] Urology-100, [address] [facility] [address], [place], [address], 03/06/2024 16:22:45 Referral None recorded. Procedures None recorded. Surgeries None recorded. Imaging US, renal 2023 024 [id number] [facility] (Centralized Scheduling), [address] [place], [address], 05/14/2024 08:37:09 XR, kidney + ureter + bladder 2023 024 [id number] [facility] (Centralized Scheduling), [address] [place], [address], 05/07/2024 16:38:55 US, renal 2023 024 [email or web address] [facility] (Centralized Scheduling), [address] , [place], [address], 03/15/2024 15:12:46 XR, kidney + ureter + bladder 2023 024 [email or web address] [facility] (Centralized Scheduling), [address], [place], [address], 03/06/2024 16:24:19 Medication Orders methenami ne hippurate 1 gram tablet 2024 025 [facility]/Pharmacy #[id number], [address] [place] [address], [address], 09/03/2024 16:00:49 methenami ne hippurate 1 gram tablet 2023 024 [facility]/Pharmacy #[id number], [address] [place] [address], [address], 05/07/2024 16:05:42 methenami ne hippurate 1 gram tablet 2023 024 [facility]/Pharmacy #[id number], [address] [place] [address], [address], 03/06/2024 16:21:55 Patient TargetsNo targets recorded. Patient InstructionsNo instructions recorded. Reason for Referral None Reported. Results Created Date Observation Date Name Description Value Unit Range Abnormal Flag Note LastModifiedBy Organization Detail LastModifiedTime 03/06/2003/06/2024 urina lysis , dipst ick Leukocytes (reference range) negati ve Not Available [facility] Urology-[address], [place], [address], 03/06/2024 16:22:15 03/06/20 24 03/06/2024 urina lysis , dipst ick Nitrite (reference range:) negati ve Not Available [place] [address] [facility] [address], [place], [address], 03/06/2024 16:22:15 03/06/20 24 03/06/2024 urina lysis , dipst ick Urobilinogen (reference range) 0.2 Not Available [facility] [place] [address] [address] [facility] 100, [place], [address], 03/06/2024 16:22:15 03/06/20 24 03/06/2024 urina lysis , dipst ick Protein (reference range) negati ve Not Available [place] [address] [address] [facility] 100, [place], [address], 03/06/2024 16:22:15 03/06/20 24 03/06/2024 urina lysis , dipst ick pH (reference range 5-8.5) 6.0 Not Available [place] [address] [address] [facility] [address], [place], [address], 03/06/2024 16:22:15 03/06/20 24 03/06/2024 urina lysis , dipst ick Blood (reference range:) negati ve Not Available [place] [address] [address] [facility] [address], [place], [address], 03/06/2024 16:22:15 03/06/20 24 03/06/2024 urina lysis , dipst ick Specific [place] (reference range) 1.015 Not Available [facility] [place] [address] [address] [facility] [address], [place], [address], 03/06/2024 16:22:15 03/06/20 24 03/06/2024 urina lysis , dipst ick Ketone (reference range) negati ve Not Available [place] [address] [address] [facility] [address], [place], [address], 03/06/2024 16:22:15 03/06/20 24 03/06/2024 urina lysis , dipst ick Bilirubin (reference range) negati ve Not Available [place] [address] [address] [facility] [address], [place], [address], 03/06/2024 16:22:15 03/06/20 24 03/06/2024 urina lysis , dipst ick Glucose (reference range) negati ve Not Available [place] [address] [address] [facility] [address], [place], [address], 03/06/2024 16:22:15 03/06/2003/06/2024 urina lysis , dipst ick Color (reference range: yellow-brown ) Yellow Not Available [facility] [place] [address] [address] [facility] [address], [place], [address], 03/06/2024 16:22:15 05/07/20 24 05/07/2024 urina lysis , dipst ick Leukocytes (reference range) negati ve Not Available [place] [address] [address] [facility] [address], [place], [address], 05/07/2024 16:03:58 05/07/20 24 05/07/2024 urina lysis , dipst ick Nitrite (reference range:) negati ve Not Available [place] [address] [address] [facility] [address], [place], [address], 05/07/2024 16:03:58 05/07/20 24 05/07/2024 urina lysis , dipst ick Urobilinogen (reference range) 0.2 Not Available [place] [address] [address] [facility] [address], [place], [address], 05/07/2024 16:03:58 05/07/20 24 05/07/2024 urina lysis , dipst ick Protein (reference range) negati ve Not Available [place] [address], [place], [address], 05/07/2024 16:03:58 05/07/20 24 05/07/2024 urina lysis , dipst ick pH (reference range 5-8.5) 6.0 Not Available [facility] [address], [place], [address], 05/07/2024 16:03:58 05/07/20 24 05/07/2024 urina lysis , dipst ick Blood (reference range:) negati ve Not Available [place] [address], [place], [address], 05/07/2024 16:03:58 05/07/20 24 05/07/2024 urina lysis , dipst ick Specific [place] (reference range) 1.015 Not Available [facility] [place] [address], [place], [address], 05/07/2024 16:03:58 05/07/20 24 05/07/2024 urina lysis , dipst ick Ketone (reference range) negati ve Not Available [place] [address] [facility] [address], [place], [address], 05/07/2024 16:03:58 05/07/20 24 05/07/2024 urina lysis , dipst ick Bilirubin (reference range) negati ve Not Available [place] [address] [facility] [address], [place], [address], 05/07/2024 16:03:58 05/07/20 24 05/07/2024 urina lysis , dipst ick Glucose (reference range) negati ve Not Available [place] [address] [facility] [address], [place], [address], 05/07/2024 16:03:58 05/07/20 24 05/07/2024 urina lysis , dipst ick Color (reference range: yellow-brown ) Yellow Not Available [facility], [place], [address], 05/07/2024 16:03:58 06/12/19 25 06/11/2024 renal ,bila teral US [facility] [address] [place] [address] Phone: Fax: Name: JULES CÉSAR Garcia TATYANA Exam Date: : 1959 Age 64 years Gender : F Access ion: [id number] Physic jaki: JACQUE CHAVIS L Facili ty: [facility] Facili ty HSV: Outpat ient Exam: RENAL, BILATE RAL US EXAMIN ATION: US KIDNEY BILATE RAL INDICA TION: UTI. TECHNI QUE: Multip le transv erse and longit udinal sonogr ams were obtain ed of the kidney s. COMPAR YESENIA: CT abdome n pelvis withou t then with IV contra st 2023 FINDIN GS: Right kidney : 9.5 x 3.6 x 4.8 cm. Left kidney : 10.7 x 5.2 x 3.9 cm. No renal calcul us or hydron ephros is. No eviden ce for a renal cortic al mass. IMPRES MIHAI: Normal sonogr aphic appear ance of the kidney s. Electr onical ly signed by: Bakari Escalante DO 2024 02:49 PM EST RP Workst ation: [id number] Dictat ed By: Bakari Escalante Transc ribed By: Transc ribed On: 025 3:19 PM Electr onical ly signed by: Bakari Escalante 025 Thank you for referr ing JULES [facility], TATYANA to [facility]. Legall y authen daniel d by BIN MICHEL 06-11 15:19: 38 CC'ed Logic: Orderi ng Provid er: PALMIRA Castellanos Attend ing Provid er: PALMIRA Castellanos Referr ing Provid er: PALMIRA Castellanos Admitt ing Provid er: PALMIRA Castellanos [email or web address] [facility] - Physical Therapy [address] [facility], [place], [address], 06/12/2024 14:56:03 Result Notes None recorded. Problems Name Problem SNOMED Code Status Onset Date Resolution Date Notes Provider Name and Address Organization Details Recorded Time Recurrent urinary tract infection 134633655 Active 2023 Roxanna Crase null, [place] - [facility] [place] [facility] [place] 15:18:53 Hypercholester olemia 79573691 Active 2023 Roxanna Crase null, [place] [facility] [place] [facility] [place] 15:19:01 Anxiety 98652409 Active 2023 Roxanna Crase null, [place] [facility] [place] 4 15:19:08 Cerebrovascula r accident 950596092 Active 2023 Roxanna Crase null, [place] [facility] [place] 4 15:19:18 Sleep apnea 10152839 Active 2023 Roxanna Crase null, [place] [facility] [place] 15:19:26 Gastroesophage al reflux disease 733492298 Active 2023 Roxanna Crase null, [place] [facility] [place] [facility] [place] 4 15:19:31 Depressive disorder 43857831 Active 2023 Roxanna Crase null, [place] [facility] [place] 15:19:38 Arthritis 0830759 Active 2023 Roxanna Crase null, [place] [facility] [place] [facility] [place] 15:19:49 Notes:issues with anestesia Problem Notes None recorded. Procedures Surgical History Date Name Laterality Status Provider Name and Address Organization Details Recorded Time excision of bunion completed [facility] & [place] 03/06/2024 15:22:19 revision of knee arthroplasty completed [facility] & [place] 03/06/2024 15:22:29 partial right hip replacement by prosthesis completed [facility] SHILPA [facility] & [place] 03/06/2024 15:22:48 partial replacement of joint of right shoulder completed [facility] SHILPA [facility] & [place] 03/06/2024 15:23:03 Appendectomy completed [facility] & [place] 03/06/2024 15:23:09 complete repair of rotator cuff completed [facility] & [place] 03/06/2024 15:23:19 Imaging Results None recorded. Procedure Notes None recorded. Medical Equipment None Reported. Allergies Allergen ID Allergen Name Allergen Category Reaction Reaction Severity Criticality Documentation Date Start Date Code Code System Note Provider Name and Address Organization Details Recorded Time 706511 Xanax medicatio n Not available Not available Not available 03/06/2024 88817 3 RxNorm SHILPA Virgen [facility] & [place] 4 15:18:04 769532 oxycodone medicatio n Not available Not available Not available 03/06/2024 7804 RxNorm SHILPA Virgen [facility] & [place] 4 15:18:13 Medications Name Sig Start Date Stop Date Status Note LastModified by Organization Details LastModified Time triazolam 0.25 mg tablet TAKE 2 TABLETS ORALLY 1 HOUR PRIOR TO DENTAL PRECEDURE FOR DENTAL ANXIETY active Not Available Not Available No t Available trazodone 50 mg tablet TAKE 1 TABLET BY MOUTH EVERY DAY active Not Available Not Available No t Available lisinopril 20 mg-hydrochl orothiazide 12.5 mg tablet TAKE 2 TABLETS BY MOUTH DAILY active Not Available Not Available No t Available pravastatin 40 mg tablet TAKE 1 TABLET BY MOUTH EVERYDAY AT BEDTIME active Not Available Not Available No t Available metoprolol succinate ER 50 mg tablet,exte nded release 24 hr TAKE 1 TABLET BY MOUTH TWICE A DAY active Not Available Not Available No t Available lisinopril 20 mg tablet TAKE 1 TABLET BY MOUTH DAILY active Not Available Not Available No t Available levofloxaci n 250 mg tablet 05/07 completed Not Available Not Available Not Available ciprofloxac in 500 mg tablet 03/06 completed Not Available Not Available Not Available amoxicillin 500 mg tablet TAKE 1 TABLET BY MOUTH THREE TIMES A DAY UNTIL GONE active Not Available Not Available No t Available pramipexole 0.5 mg tablet TAKE 1 TABLET BY MOUTH EVERY DAY active Not Available Not Available No t Available methenamine hippurate 1 gram tablet Take 1 tablet twice a day by oral route for 30 days. 2024 active Not Available Not Available Not Avai lable famotidine 20 mg tablet active Not Available Not Available Not Available amlodipine 10 mg tablet active Not Available Not Available Not Available buspirone 10 mg tablet TAKE 1 TABLET BY MOUTH TWICE A DAY active Not Available Not Available No t Available gabapentin 300 mg capsule active Not Available Not Available Not Available levofloxaci n 500 mg tablet 05/07 completed Not Available Not Available Not Available methylpredn isolone 4 mg tablets in a dose pack TAKE 6 TABLETS ON DAY 1 DIRECTED ON PACKAGE AND DECREASE BY 1 TAB EACH DAY FOR A TOTAL OF 6 DAYS active Not Available Not Available No t Available lisinopril 40 mg tablet TAKE 1 TABLET ORALLY ONCE DAILY active Not Available Not Available No t Available fluticasone propionate 50 mcg/actuati on nasal spray,suspe nsion active Not Available Not Available Not Available sertraline 50 mg tablet TAKE 1 TABLET BY MOUTH EVERY DAY active Not Available Not Available No t Available ezetimibe 10 mg tablet TAKE 1 TABLET BY MOUTH EVERY DAY active Not Available Not Available No t Available Premarin 0.625 mg/gram vaginal cream active Not Available Not Available Not Available hydrochloro thiazide 12.5 mg tablet active Not Available Not Available Not Available diclofenac 1 % topical gel active Not Available Not Available Not Available Creon 36,000 unit-114,00 0 unit-180,00 0 unit capsule,del ayed release ADMINISTE R 1 CAPSULE BY MOUTH WITH YOUR MEALS AND ADMINISTE R WITH MEALS AND/OR SNACKS active Not Available Not Available No t Available Vitals Date Recorded Body temperature Oxygen saturation Oxygen saturation in Arterial blood by Pulse oximetry Heart rate Systolic blood pressure Diastolic blood pressure Provider Name and Address Organization Details Last Updated DateTime 4 97.7 [degF] 99 % 99 % 68 /min 126 mm[Hg] 77 mm[Hg] Roxanna Kim [facility] [place] - [place] & [place] 4 15:38:49 Social History None recorded. Functional Status Question Answer Note LastModified by Organizat ion Details LastModified Time Do you use any illicit or recreational drugs? No Information not available 03/06/2024 What is your level of alcohol consumption? None Information not available 03/06/2024 Mental Status None recorded. Family History Nothing Reported Notes:Mother- hypertension,s troke,arthritis Father- heart disease, diabetes, Cancer sister- Alzheimer's, diabetes Medical History No medical history recorded. Gynecological HistoryNo gynecological history recorded. Obstetrics History GPAL:G 0 P 0 0 0 0 Past Encounters Encounter ID Performer Location Encounter Start Date Encounter Closed Date Diagnosis/Indication Diagnosis SNOMED-CT Code Diagnosis ICD10 Code Diagnosis Note [id number] Estefany Chavis NP, S [facility] Urology-1 00 [address] [facility] 100 [place] [address] 03/06/2024 14:53:59 03/06/2024 15:51:35 Recurrent urinary tract infection 863059690 N39.0 UA negativeDi scussed Active bowel habits, probiotics , cranberry supplement s Qday-tid, hygeine, voiding prior to and post sex (wash), and wipe front to back. Schedule Renal US and KUBStart Methenamin e 1 gram bid RTC in 8 weeks for f/u Nocturia 924283947 R35.1 [id number] Estefany Chavis NP, S [facility] Urology-1 00 [address] [facility] [address] [place] [address] 05/07/2024 15:21:55 05/07/2024 16:02:09 Recurrent urinary tract infection 519112076 N39.0 UA negativeRe send Renal US and KUB orderConti nue Methenamin e 1 gram bidRTC in 4 months for f/u [id number] Estefany Chavis NP, [facility] Urology-1 00 [address] [facility] [address] [place] [address] 09/03/2024 15:27:17 09/03/2024 15:46:13 Recurrent urinary tract infection 247969863 N39.0 Continue Methenamin e 1 gram bidRTC in 1 year for f/u Health Concerns Section Related Observation LastModified by Organization Detai ls LastModified Time None Recorded Concern Status LastModified by Organization Details LastModified Time None Recorded Advance Directives Directive None Recorded Payers Insurance Date Sequence Insurance Name Policy Number Policy Fisher Covered Member ID Fisher Member ID Guarantor Name 09/03/2024 1 [place] Tatyana portillo [id number] Tatyana portillo 09/03/2024 2 [place] [id number] Tatyana Benton [id number] Tatyana portillo Notes Date Note Type Note Provider Name and Address Organization Details Recorded Time 03/06/2024 text/html 63 yowf presents to the office for evaluation of reoccurring UTIs. Location is LUT. Quality is pressure and painful urination. Severity- varies. Reports that she started experiencing reoccurring UTI's July of this year, has had 4-5 UTIs this year, last UTI was approx 4 weeks ago. UTIs have all been treated with antibiotics, states antibiotics doesn't always help with her sxs. When experiences UTI has dysuria, urinary urgency/frequency, and bladder pain that will last 30 minutes after she urinates. Has not had any labs or diagnostic tests performed. Currently, states f/c stream good, nocturia 0-1, bowels move regularly; denies any gross hematuria, flank pain, fevers, chills, nausea, or vomiting. Denies any leakage. No h/o DM. Has never had a hysterectomy. States has been taking OTC Methenamine 162mg/Salicylate 162.8mg that does help. Denies any h/o kidney stones. States food/drinks doesnt make sxs worse. 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 Estefany Chavis NP, S [address], [place], [address], [facility] - [place] & [place] 03/06/2024 16:23:51 05/07/2024 text/html 05/07/2024 63 yowf RTC for 8 week f/u of Recurrent UTIs. At last visit on 03/06/2024 patient was started on methenamine 1 g b.i.d.. Patient reports he is taking the medication without any overt side effects. Patient reports since her last visit she has not experienced any UTIs or UTI like symptoms. Renal ultrasound and KUB was ordered however this was not performed. Patient reports urinary stream is good. Nocturia times 1-2. Bowels move regularly. She denies any dysuria gross hematuria. Patient reports she also takes a probiotic and cranberry extract daily. 03/06/2024 63 yowf presents to the office for evaluation of reoccurring UTIs. Location is LUT. Quality is pressure and painful urination. Severity- varies. Reports that she started experiencing reoccurring UTI's July of this year, has had 4-5 UTIs this year, last UTI was approx 4 weeks ago. UTIs have all been treated with antibiotics, states antibiotics doesn't always help with her sxs. When experiences UTI has dysuria, urinary urgency/frequency, and bladder pain that will last 30 minutes after she urinates. Has not had any labs or diagnostic tests performed. Currently, states f/c stream good, nocturia 0-1, bowels move regularly; denies any gross hematuria, flank pain, fevers, chills, nausea, or vomiting. Denies any leakage. No h/o DM. Has never had a hysterectomy. States has been taking OTC Methenamine 162mg/Salicylate 162.8mg that does help. Denies any h/o kidney stones. States food/drinks doesnt make sxs worse. 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 Estefany Chavis NP, [address], [place], [address], [place] [facility] - [place] & [place] 05/07/2024 16:07:16 09/03/2024 text/html 09/03/2024 64 yowf RTc for 4 month f/u of Recurrent UTIs. Recurrent UTIs has been managed with methenamine 1 g b.i.d.. Patient reports she is taking the medication without any overt side effects. Patient reports since her last visit she has not experienced any UTIs or UTI like symptoms. Urinary stream is good. Nocturia x 1. Bowels move regularly. She denies any dysuria gross hematuria. Renal US on 06/11/2024 was normal. 05/07/2024 63 yowf RTC for 8 week f/u of Recurrent UTIs. At last visit on 03/06/2024 patient was started on methenamine 1 g b.i.d.. Patient reports he is taking the medication without any overt side effects. Patient reports since her last visit she has not experienced any UTIs or UTI like symptoms. Renal ultrasound and KUB was ordered however this was not performed. Patient reports urinary stream is good. Nocturia times 1-2. Bowels move regularly. She denies any dysuria gross hematuria. Patient reports she also takes a probiotic and cranberry extract daily. 03/06/2024 63 yowf presents to the office for evaluation of reoccurring UTIs. Location is LUT. Quality is pressure and painful urination. Severity- varies. Reports that she started experiencing reoccurring UTI's July of this year, has had 4-5 UTIs this year, last UTI was approx 4 weeks ago. UTIs have all been treated with antibiotics, states antibiotics doesn't always help with her sxs. When experiences UTI has dysuria, urinary urgency/frequency, and bladder pain that will last 30 minutes after she urinates. Has not had any labs or diagnostic tests performed. Currently, states f/c stream good, nocturia 0-1, bowels move regularly; denies any gross hematuria, flank pain, fevers, chills, nausea, or vomiting. Denies any leakage. No h/o DM. Has never had a hysterectomy. States has been taking OTC Methenamine 162mg/Salicylate 162.8mg that does help. Denies any h/o kidney stones. States food/drinks doesnt make sxs worse. 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 06/11/19 25: Renal US normal Estefany Chavis, JODY, [address], [place], [address], [facility] - [facility] - [place] & [place] 09/03/2024 16:01:04 OBGyn Episode No OBEpisode recorded.
[2024-10-24 11:23] LABS: Anti-Centromere B Antibodies <0.2 AI (0.0-0.9); Anti-DNA (DS) Ab Qn <1 IU/mL (0-9); Anti-Jo-1 <0.2 AI (0.0-0.9); Anti-Smith Antibody <0.2 AI (0.0-0.9); Antichromatin Antibodies <0.2 AI (0.0-0.9); Antiscleroderma-70 Antibodies <0.2 AI (0.0-0.9); RNP Antibodies 0.2 AI (0.0-0.9); Sjogren's Anti-SS-A <0.2 AI (0.0-0.9); Sjogren's Anti-SS-B <0.2 AI (0.0-0.9)
[2024-10-24 15:41] LABS: Calcium, Ionized 4.9 mg/dL (4.5-5.6)
[2024-10-24 16:41] LABS: Deamidated Gliadin Abs, IgA 3 units (0-19); Deamidated Gliadin Abs, IgG 3 units (0-19); Thyroglobulin Level <1.0 IU/mL (0.0-0.9); Tissue Transglutaminase IgA Ab <2 U/mL (0-3); Tissue Transglutaminase IgG Ab 8 U/mL (0-5)
[2024-10-24 18:43] LABS: Cortisol,AM 19.9 ug/dL (6.2-19.4)
[2024-10-25 08:16] LABS: Endomysial IgA Antibody Negative (Negative)
[2024-10-26 08:18] LABS: Reticulin IgA Antibody Negative titer (Neg:<1:2.5)
[2024-10-26 14:15] LABS: Saccharomyces cerevisiae, IgA <20.0 Units (0.0-24.9); Saccharomyces cerevisiae, IgG <20.0 Units (0.0-24.9)
== END 2024-10-23 23:59 | disposition home or self-care (01) ==
LOC: LAB.DROPOF 10-24 11:11
PROVIDERS: PCP Nurse Practitioner Family; Visit Provider Nurse Practitioner Family
DX: E55.9 Vitamin D deficiency, unspecified (principal); E11.9 Type 2 diabetes mellitus without complications; R53.83 Other fatigue
CPT/HCPCS: 80053; 80061; 81001; 82150; 82306; 82330; 82533; 82607; 82728; 83036; 83516; 83540; 83550; 83690; 83735; 83970; 84100; 84156; 84439; 84443; 85007; 85025; 86140; 86225; 86235; 86255; 86256; 86376; 86671; 86800; 87086

== ENCOUNTER 2024-11-29 13:12 | Outpatient (POV) | payer MEDICARE, BC, SELFPAY ==
--- OUTSIDE RECORDS SUMMARY | 2024-04-19 17:00 | XMS_ITS ---
Author Organization [facility] Address [address] [place] [id number] Care Team Providers Care Senior Marketing Engineer Name Role Phone Gaston Swan MD Primary Care Provider UnavailArik Bustamante Unavailable [phone] Migration, Provider Unavailable Unavailable Allergies Allergen (clinical drug ingredient) Drug/Non Drug Allergy documented on EMR Reaction Allergy Type Onset Date Status oxycodone oxyCODONE Unknown Drug Allergy Active alprazolam Xanax Unknown Drug Allergy Active acetaminophen / oxycodone Percocet Unknown Drug Allergy Active oxycodone OxyCONTIN Unknown Drug Allergy Active REAS[facility] VISIT [facility] Encounter Medications Medication SIG (Take, Route, Frequency, Duration) Notes Start Date End Date Status Gabapentin *Please review and pick correct strength-formulat ion from [employer] options. If intended option is not shown, discontinue and re-order from Quick Search* Active traMADol HCl 50 MG 1 tab(s) orally q6h prn pain 09/08/2021 Not-Taking traMADol HCl ER 100 MG 1 tab(s) orally once a day for 30 day(s) 09/08/2021 Not-Taking diazePAM 5 MG 1 tab(s) orally one hour prior to MRI repeat 5 minutes before MRI is needed 07/21/2021 Active traMADol HCl 50 MG 1 tab(s) orally every 4 hours 07/14/2022 Active Pramipexole Dihydrochloride *Please review and pick correct strength-formulat ion from [employer] options. If intended option is not shown, discontinue and re-order from Quick Search* Active Losartan Potassium *Please revie w and pick correct strength-formulat ion from [employer]ispan options. If intended option is not shown, discontinue and re-order from Quick Search* Active Zoloft *Please review and pick correct strength-formulat ion from [employer] options. If intended option is not shown, discontinue and re-order from Quick Search* Active Cholecalciferol *Please review and pick correct strength-formulat ion from [employer] options. If intended option is not shown, discontinue and re-order from Quick Search* Active amLODIPine Benzoate *Please revi ew and pick correct strength-formulat ion from [employer] options. If intended option is not shown, discontinue and re-order from Quick Search* Active Voltaren *Please review and pick correct strength-formulat ion from [employer] options. If intended option is not shown, discontinue and re-order from Quick Search* Active Flonase Allergy Relief *Please review and pick correct strength-formulat ion from [employer] options. If intended option is not shown, discontinue and re-order from Quick Search* Active Esomeprazole Magnesium *Please review and pick correct strength-formulat ion from [employer] options. If intended option is not shown, discontinue and re-order from Quick Search* Active Metoprolol Succinate *Please rev iew and pick correct strength-formulat ion from [employer]pan options. If intended option is not shown, discontinue and re-order from Quick Search* Active hydrOXYzine HCl *Please review and pick correct strength-formulat ion from [employer] options. If intended option is not shown, discontinue and re-order from Quick Search* Active Tylenol *Please review and pick correct strength-formulat ion from [employer]ispan options. If intended option is not shown, discontinue and re-order from Quick Search* Active Carafate *Please review and pick correct strength-formulat ion from Medispan options. If intended option is not shown, discontinue and re-order from Quick Search* Active traZODone HCl *Please review and pick correct strength-formulat ion from [employer]ispan options. If intended option is not shown, discontinue and re-order from Quick Search* Active Encounters Encounter Location Date Provider Diagnosis [facility] [address] [place], [place] [phone] 04/19/2024 Provider Migration Plan Of Treatment No Information Progress Notes * Tatyana LUZ B:1960 (64 yo F)Acc No.[id number]:04/19/2024 UNLOCKED PROGRESS NOTE Patient: Tatyana RIVER Provider: Mohini Quinones Case Label: Date Of Injury: :1960 A ge:63 Y S ex:Female Date:04/19/2024 Address:[address] [place] [address] Pcp:Gaston Swan MD Subjective: * Chief Complaints: * 1 . Multum To [facility] Conversion Encounter. * Medical History: * Medications: T aking traZODone HCl , Notes to Pharmacist: *Please review and pick correct strength-formulation from Medispan options. If intended option is not shown, discontinue and re-order from Quick Search*, Taking Tylenol , Notes to Pharmacist: *Please review and pick correct strength-formulation from Medispan options. If intended option is not shown, discontinue and re-order from Quick Search*, Taking Carafate , Notes to Pharmacist: *Please review and pick correct strength- formulation from Medispan options. If intended option is not shown, discontinue and re-order from Quick Search*, Taking Metoprolol Succinate , Notes to Pharmacist: *Please review and pick correct strength-formulation from Medispan options. If intended option is not shown, discontinue and re-order from Quick Search*, Taking hydrOXYzine HCl , Notes to Pharmacist: *Please review and pick correct strength-formulation from Medispan options. If intended option is not shown, discontinue and re-order from Quick Search*, Taking Flonase Allergy Relief , Notes to Pharmacist: *Please review and pick correct strength-formulation from Medispan options. If intended option is not shown, discontinue and re-order from Quick Search*, Taking Esomeprazole Magnesium , Notes to Pharmacist: *Please review and pick correct strength-formulation from Medispan options. If intended option is not shown, discontinue and re-order from Quick Search*, Taking Voltaren , Notes to Pharmacist: *Please review and pick correct strength-formulation from Medispan options. If intended option is not shown, discontinue and re-order from Quick Search*, Taking Cholecalciferol , Notes to Pharmacist: *Please review and pick correct strength-formulation from Medispan options. If intended option is not shown, discontinue and re-order from Quick Search*, Taking amLODIPine Benzoate , Notes to Pharmacist: *Please review and pick correct strength-formulation from Medispan options. If intended option is not shown, discontinue and re-order from Quick Search*, Taking Losartan Potassium , Notes to Pharmacist: *Please review and pick correct strength-formulation from Medispan options. If intended option is not shown, discontinue and re-order from Quick Search*, Taking Zoloft , Notes to Pharmacist: *Please review and pick correct strength-formulation from Medispan options. If intended option is not shown, discontinue and re-order from Quick Search*, Taking Pramipexole Dihydrochloride , Notes to Pharmacist: *Please review and pick correct strength-formulation from Medispan options. If intended option is not shown, discontinue and re-order from Quick Search*, Taking Gabapentin , Notes to Pharmacist: *Please review and pick correct strength-formulation from Medispan options. If intended option is not shown, discontinue and re-order from Quick Search*, Taking diazePAM 5 MG Tablet 1 tab(s) orally one hour prior to MRI repeat 5 minutes before MRI is needed , Taking traMADol HCl 50 MG Tablet 1 tab(s) orally every 4 hours , Not-Taking traMADol HCl ER 100 MG Tablet Extended Release 24 Hour 1 tab(s) orally once a day , Not-Taking traMADol HCl 50 MG Tablet 1 tab(s) orally q6h prn pain * Allergies: P ercocet, oxyCODONE, OxyCONTIN, Xanax. Objective: * Vitals: Assessment: Plan: * Treatment: * Images: * Electronic signature of Prov bakarir Migration on 11/29/2024 at 01:21 PM EDT Sign off status: Pending * Provider: Mohini cavanaugh Migration Date: 06/19/2023 Generated for Julius wills/Vandana/Jean on: 11/29/2024 01:21 PM EDT
--- NOTE | 2024-11-29 13:20 | EXP.PAIN.OV ---
HPI Data of Consult Patient: new to practice Consult date: 11/29/24 Requesting Physician: Korin Manzanares APRN Primary Care Provider: Katy Cardona APRN Reason for consult: Low back pain, right leg pain, right hip pain History of present illness: Ms. Covington is a 64 year old female who presents today as a new patient. She has a referral from Katy Cardona's office. Today she rates her pain a 6 out of 10. Patient states that she has had pain for 30+ years in her low back and goes into her right leg only. Patient states that it has progressively worsened over time and was unrelated to any specific trauma or injury. Patient does state that she believes it is more wear and tear from riding horses competitively when she was younger. Patient does describe it as a constant achy sensation with occasional sharp shooting pains and numbness and tingling that radiates down all the way to her toes. Patient has tried oral medications including Tylenol and ibuprofen along with heat and ice and topicals such as emu oil, lidocaine spray and Voltaren with minimal changes. Patient has seen the chiropractor for multiple sessions in the past with no additional benefit. Patient has also had physical therapy but this made her symptoms worse. Patient states that she has not ever had any previous back surgery however she has undergone a right hip and right knee replacement. Patient did have previous knee injections and 2 back injections that she does believe helped some but they did very on how long they lasted. Patient does state her ongoing symptoms are affecting her ability perform activities of daily living such as cooking and cleaning. Patient states that her right leg just feels very heavy and feels like it gets stuck. 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 Patient denies any heart or kidney issues. She states that in the past she has been on gabapentin and that helped however they stopped prescribing this medication. Patient is on a natural valerian medication at home that does seem to help some of her pain. She denies any ongoing muscle relaxers or anti-inflammatories. Patient states that Celebrex made no improvement and meloxicam she cannot recall what the reaction was. Patient does also make mention that she cannot tolerate doing any injections without sedation. Patient states that sedation medication itself does not even work well for her.Her Jesus Alberto has been reviewed and is appropriate. Pain at rest (0-10 scale): 6 Has patient had previous pain injection?: No Conservative treatment options previously tried: Home exercise plan (Longer than 12 weeks) and Physical Therapy (Made worse) cc:: CC: Korin Manzanares APRN [facility] Disclaimer: The information contained in this section may have been updated after the patient was seen, as this information can be updated by other users. Medical History Chronic sinusitis Nausea Epigastric pain Acid reflux Heartburn Bulging lumbar disc Abnormal CT of spine Skin exam, screening for cancer Lower extremity edema Myalgia due to statin Encounter to establish care Muscle cramping Fall Statin intolerance Vomiting Frequent UTI Kidney mass TIA (transient ischemic attack) Cardiac arrest Hypertension Stroke GBS (Guillain [place] syndrome) Surgical History History of bunionectomy H/O shoulder surgery History of hip replacement Total knee replacement status History of appendectomy Family History Other Hypertension Social History (Updated 11/29/24 @ 13:46 by Mary Jackson, JASPAL) Smoking Status: Never smoker alcohol intake: current alcohol intake frequency: holidays/special occasions only substance use type: denies use current occupational status: retired and disabled Travel in the last 8 weeks?: None Review of Systems Review of Systems Review of systems:: pertinent systems reviewed and negative unless documented below Review of systems (narrative): Review of Systems: General: No recent weight changes, no fever, no sleep disturbances Respiratory: No cough, no shortness of air, no recurring pulmonary infections Cardiovascular/peripheral vascular: No chest pain, no palpitations, no edema, no shortness of breath Gastrointestinal: No new onset incontinence, normal bowel movements reported Genitourinary: No new onset incontinence Musculoskeletal: Low back pain, right leg pain Psychiatric: [Normal mood/affect] Neurological: [Denies weakness in extremities], [denies balance issues] Meds Home Medications and Allergies Home Medications ?Medication ?Instructions ?Recorded ?Confirmed ?Type famotidine 20 mg tablet 20 mg PO DAILY 01/11/24 11/21/24 History fluticasone propionate 50 1 spray intranasal DAILY 01/11/24 11/21/24 History mcg/actuation nasal spray,suspension diclofenac sodium 1 % topical gel 1 ea topical TIDP PRN . 02/20/24 11/21/24 History methenamine hippurate 1 gram tablet 1 g PO BID 06/01/24 11/21/24 History kzzjfl-ydzrxmhj-ytywyjv 1 cap PO .With meals #100 caps 06/07/24 11/21/24 Rx 36,000-114,000-180,000 unit capsule,delay rel (Creon) sertraline 50 mg tablet See Rx Instructions .Route 06/19/24 11/21/24 Rx .COMPLEX #90 tabs buspirone 10 mg tablet 10 mg PO BID #90 tabs 07/25/24 11/21/24 Rx cholecalciferol (vitamin D3) 50 50 mcg PO DAILY 08/13/24 11/21/24 History mcg (2,000 unit) capsule aripiprazole 5 mg tablet (Abilify) 5 mg PO HS #90 tabs 10/18/24 11/21/24 Rx conjugated estrogens 0.625 mg/gram 0.3125 mg vaginal .twice weekly 10/18/24 11/21/24 History vaginal cream (Premarin) ezetimibe 10 mg tablet 10 mg PO QHS #90 tabs 10/18/24 11/21/24 Rx lisinopril 20 2 tab PO QAM #180 tabs 10/18/24 11/21/24 Rx mg-hydrochlorothiazide 12.5 mg tablet metoprolol succinate 50 mg 50 mg PO BID #180 tabs 10/18/24 11/21/24 Rx tablet,extended release 24 hr fenofibrate nanocrystallized 145 145 mg PO DAILY #90 tabs 10/27/24 11/21/24 Rx mg tablet azelastine 137 mcg (0.1 %) nasal 2 spray intranasal BID #30 mL 11/21/24 11/21/24 Rx spray trazodone 50 mg tablet 50 mg PO DAILY 11/21/24 11/21/24 History New Prescriptions to Start Prescriptions: Allergies Allergy/AdvReac Type Severity Reaction Status Date / Time acetaminophen (From Percocet) Allergy Mild Rash Verified 11/21/24 14:39 Calcium Channel Blocking AdvReac Intermediate edema Verified 11/21/24 14:39 Agents-Dih Uchgmac-SJB-IpX Reductase AdvReac Intermediate Myalgia Verified 11/21/24 14:39 Inhibitor alprazolam (From Xanax) AdvReac Mild Agitated Verified 11/21/24 14:39 oxycodone AdvReac Mild Other Verified 11/21/24 14:39 Objective Narrative: Physical Exam: General: Alert and oriented x3, no acute distress, pleasant and cooperative Lungs: Respirations even and unlabored, symmetrical chest expansion Eyes: PERRL Musculoskeletal: Flexion and extension of lumbar [spine] somewhat guarded secondary to pain, [antalgic gait noted] positive right leg raise with decreased sensation to light touch and decreased reflexes Neurological: Speech clear, no gross sensory deficit Additional findings Additional findings: FINDINGS: There is no acute fracture or subluxation. The vertebra are normal height. There is no malalignment. Facets are properly aligned. There is vacuum disc phenomenon from L3-4 through L5-S1. There is mild lumbar scoliosis convex to the right of approximately 15 degrees. A large, complex mass is seen posterior to the right kidney measuring 5.2 transverse, 3.8 AP and 10.0 cm in craniocaudad dimension. This is best seen on image 6 of series 6002. There appears to be some fat attenuation within this mass. There is a thickened capsule. The right kidney is anteriorly displaced. L1-2: Mild diffuse disc bulge with mild bilateral neuroforaminal narrowing. L2-3: Mild diffuse disc bulge with mild bilateral neuroforaminal narrowing. L3-4: Moderate diffuse disc bulge with moderate facet hypertrophy. There is moderate central canal stenosis and moderate bilateral neuroforaminal narrowing. L4-5: Moderate diffuse disc bulge with bilateral facet hypertrophy, right greater than left. High-grade right and mild to moderate left neuroforaminal narrowing. L5-S1: Mild to moderate diffuse disc bulge with endplate hypertrophy and moderate to high-grade bilateral neuroforaminal narrowing. IMPRESSION: 10 cm right retroperitoneal mass. Recommend CT of the abdomen and pelvis with contrast for further evaluation. Multilevel changes of degenerative disc disease with neuroforaminal narrowing most evident on the right at L4-5. Reviewed, Interpreted and Dictated by Patrick Rodriguez MD Transcribed by Terri Liao Authenticated and ICELLO Assessment and Plan *Assessment and plan (1) Degenerative disc disease: Status: Acute Category: Medical (2) Lumbar radiculopathy: Status: Acute Category: Medical Code(s): M54.16 - Radiculopathy, lumbar region Plan I did discuss with the patient regarding her symptoms that I do believe she would be a very good candidate for a epidural however we did discuss that we do not typically sedate patients for these injections due to the fact that they are so quick. Patient states she would not be interested in any type of injection without sedation. I did discuss with her that I will order a compounded cream and send in a prescription of diclofenac 75 mg twice a day for 2 weeks. Patient was counseled to discontinue all other NSAIDs while taking this medication and to take it with food to minimize GI upset. I will also send in a 2-week dose of methocarbamol 500 mg twice daily. Patient will return to clinic in 2 weeks for reevaluation of symptoms and plan of care. Patient has been instructed to contact the clinic with any concerns before the next appointment. Dr. Conner has reviewed this note and agrees with this plan of care. This note was dictated using voice recognition software and make contain errors or omissions. All injections are used with Lidocaine, Bupivacaine and dexamethasone. Occasionally urine drug screen is needed to verify patient's compliance with our office pain contract. This is ordered based off specific treatments related to chronic pain with the potential to abuse certain medications.
--- OUTSIDE RECORDS SUMMARY | 2024-11-29 13:22 | XMS_ITS | Patient Health Record ---
Author Organization [facility] Address [address] [place] [phone] Care Team Providers Care Certified Tumor Registrar Name Role Phone Gaston Swan MD Primary Care Provider Arik Martinez Unavailable [phone] Migration, Provider Unavailable Unavailable Allergies Allergen (clinical drug ingredient) Drug/Non Drug Allergy documented on EMR Reaction Allergy Type Onset Date Status oxycodone oxyCODONE Unknown Drug Allergy Active alprazolam Xanax Unknown Drug Allergy Active acetaminophen / oxycodone Percocet Unknown Drug Allergy Active oxycodone OxyCONTIN Unknown Drug Allergy Active Reason For Referral No Information Medications Medication SIG (Take, Route, Frequency, Duration) Notes Start Date End Date Status Tylenol *Please review and pick correct strength-formulat ion from [employer] options. If intended option is not shown, discontinue and re-order from Quick Search* Active Pramipexole Dihydrochloride *Please review and pick correct strength-formulat ion from Med[employer] options. If intended option is not shown, discontinue and re-order from Quick Search* Active Carafate *Please review and pick correct strength-formulat ion from Medispan options. If intended option is not shown, discontinue and re-order from Quick Search* Active Gabapentin *Please review and pick correct strength-formulat ion from Medispan options. If intended option is not shown, discontinue and re-order from Quick Search* Active Losartan Potassium *Please revie w and pick correct strength-formulat ion from Medispan options. If intended option is not shown, discontinue and re-order from Quick Search* Active traZODone HCl *Please review and pick correct strength-formulat ion from [employer] options. If intended option is not shown, discontinue and re-order from Quick Search* Active Zoloft *Please review and pick correct strength-formulat ion from [employer] options. If intended option is not shown, discontinue and re-order from Quick Search* Active Cholecalciferol *Please review and pick correct strength-formulat ion from [employer] options. If intended option is not shown, discontinue and re-order from Quick Search* Active amLODIPine Benzoate *Please revi ew and pick correct strength-formulat ion from [employer] options. If intended option is not shown, discontinue and re-order from Quick Search* Active traMADol HCl 50 MG 1 tab(s) orally q6h prn pain 09/08/2021 Not-Taking Voltaren *Please review and pick correct strength-formulat ion from [employer] options. If intended option is not shown, discontinue and re-order from Quick Search* Active Flonase Allergy Relief *Please review and pick correct strength-formulat ion from [employer] options. If intended option is not shown, discontinue and re-order from Quick Search* Active traMADol HCl ER 100 MG 1 tab(s) orally once a day for 30 day(s) 09/08/2021 Not-Taking Esomeprazole Magnesium *Please review and pick correct strength-formulat ion from [employer] options. If intended option is not shown, discontinue and re-order from Quick Search* Active Metoprolol Succinate *Please rev iew and pick correct strength-formulat ion from [employer] options. If intended option is not shown, discontinue and re-order from Quick Search* Active diazePAM 5 MG 1 tab(s) orally one hour prior to MRI repeat 5 minutes before MRI is needed 07/21/2021 Active hydrOXYzine HCl *Please review and pick correct strength-formulat ion from [employer] options. If intended option is not shown, discontinue and re-order from Quick Search* Active traMADol HCl 50 MG 1 tab(s) orally every 4 hours 07/14/2022 Active Social History Tobacco Use: Social History Observation Description Date Details (start date - stop date) Never Smoker NA - NA Tobacco Use: Question Answer Notes Smoking status is Non-Smoker Problems Problem Type SNOMED Code ICD Code Onset Dates Problem Status W/U Status Risk Notes Problem 797233631 Lumbago with sciatica, right side (M54.41) Active confirmed Problem 16897411 DDD (degenerativ e disc disease), lumbar (M51.36) Active confirmed Problem 15405639 Other chronic pain (G89.29) Active confirmed Problem Localized, primary osteoarthritis of the pelvic region and thigh (195438619) Primary osteoarthritis of right hip (M16.11) Active confirmed Problem 578014376 Status post righ t hip replacement (Z96.641) Active confirmed Problem 5737610522066002 Arthritis of right hip (M16.11) Active confirmed Encounters Encounter Location Date Provider Diagnosis [facility] [address] [place] [address] 04/19/2024 Provider Migration Plan Of Treatment No Information Insurance Providers Payer Name Payer Address Payer Phone Subscriber Number Group Number Insured Name Patient Relationship to Insured Coverage Start Date Coverage End Date [facility] [address] [place] [address] [phone] [id number] Tatyana Hunter Self - patient is the insured 0 Medical (General) History Medical History History ICD Code Hypertension Hyperlipidemia Food allergies (Eggs) Guillain-Glenoma Syndrome PE Surgical History Surgery Date(Month/Year) right total hip arthroplasty, anterior a pproach. 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
[2024-11-29 13:45] VITALS: BP 121/82; PULSE 65; RESP 18; O2SAT 99; BMI 38.4
== END 2024-11-29 23:59 | disposition home or self-care (01) ==
PROVIDERS: PCP Nurse Practitioner Family; Visit Provider Nurse Practitioner Family
DX: M54.16 Radiculopathy, lumbar region (principal); Z79.1 Long term (current) use of non-steroidal anti-inflammatories (NSAID); Z79.899 Other long term (current) drug therapy
CPT/HCPCS: 99202; G0463

== ENCOUNTER 2024-12-07 15:22 | Outpatient (CLI) | payer MEDICARE, BC, SELFPAY ==
--- OUTSIDE RECORDS SUMMARY | 2024-04-19 17:00 | XMS_ITS ---
Author Organization [facility] Address [address] [place] [phone] Care Team Providers Care Furniture Upholsterer Apprentice Name Role Phone Gaston Swan MD Primary Care Provider UnavailArik Bustamante Unavailable [phone] Migration, Provider Unavailable Unavailable Allergies Allergen (clinical drug ingredient) Drug/Non Drug Allergy documented on EMR Reaction Allergy Type Onset Date Status oxycodone oxyCODONE Unknown Drug Allergy Active alprazolam Xanax Unknown Drug Allergy Active acetaminophen / oxycodone Percocet Unknown Drug Allergy Active oxycodone OxyCONTIN Unknown Drug Allergy Active REASON FOR VISIT [facility] Encounter Medications Medication SIG (Take, Route, Frequency, Duration) Notes Start Date End Date Status Gabapentin *Please review and pick correct strength-formulat ion from [employer] options. If intended option is not shown, [...] review and pick correct strength-formulat ion from [employer] options. If intended option is not shown, [...] Active Encounters Encounter Location Date Provider Diagnosis [facility] [address] [place] [address] 04/19/2024 Provider Migration Plan Of Treatment No Information Progress Notes * Tatyana LUZ B:1960 (64 yo F)Acc No.[id number]:04/19/2024 UNLOCKED PROGRESS NOTE Patient: Tatyana RIVER Provider: Mohini Quinones Case Label: Date Of Injury: :1960 A ge:63 Y S ex:Female Date:04/19/2024 Address:[address] [place] [address] Pcp:Gaston Swan MD Subjective: * Chief Complaints: [...] Electronic signature of Prov bakarir Migration on 12/07/2024 at 03:25 PM EDT Sign off status: Pending * Provider: Mohini cavanaugh Migration Date: 06/19/2023 Generated for Julius wills/Vandana/Jean on: 12/07/2024 03:25 PM EDT
--- OUTSIDE RECORDS SUMMARY | 2024-12-07 15:24 | XMS_ITS | Clinical Summary ---
Author Organization [facility] Facility Address [address] [address] Care Team Providers Care Clinical Engineering Director Name Role Phone Justin Guzmán MD Primary Care Provider [phone] Allergies Active Allergy Reactions Criticality Noted Date Comments Alprazolam Other (see comments) 10/27/2022 Oxycodone Other (see comments) 10/27/2022 Oxycodone-Acetaminophen Itching 01/29/2022 Medications hydroCHLOROthia zide 12.5 MG tablet 1 (one) time each day 07/22/2021 Active metoprolol succinate XL (TOPROL XL) 50 MG 24 hr tablet Take 50 mg by mouth every 12 (twelve) hours 07/08/2021 Active amLODIPine (NORVASC) 10 MG tablet Take 10 mg by mouth 1 (one) time each day 06/28/2021 Active sertraline (ZOLOFT) 50 MG tablet Take 50 mg by mouth 1 (one) time each day 08/05/2021 Active gabapentin (NEURONTIN) 300 MG capsule if needed 07/22/2021 Active pravastatin (PRAVACHOL) 40 MG tablet Take 40 mg by mouth 1 (one) time each day in the evening 09/13/2022 Active pramipexole (MIRAPEX) 0.5 MG tablet Take 0.5 mg by mouth 1 (one) time each day 08/20/2022 Active traZODone (DESYREL) 50 MG tablet 50 mg 1 (one) time each day 08/09/2022 Active Active Problems Problem Noted Date Diagnosed Date Chronic kidney disease, Stage I 08/13/2021 Hypertensive chronic kidney disease, benign, with chronic kidney disease stage I through stage IV, or unspecified 08/13/2021 Pulmonary embolism 08/13/2021 COVID-19 08/13/2021 Family History Medical History Relation Comments Cancer Father Diabetes Father Heart disease Father Hypertension Father Cancer Maternal Grandmother Heart disease Mother Hypertension Mother Stroke Mother Dementia Sister Heart disease Sister Hypertension Sister Relation Status Comments Father Maternal Grandmother Mother Sister Social History Tobacco Use Types Packs/Day Years Used Date Smoking Tobacco: Never Smokeless Tobacco: Never Tobacco Cessation:Counseling Given: Not Answered Alcohol Use Standard Drinks/Week Comments Never 0 (1 standard drink = 0.6 oz pur e alcohol) Comments Unknown Sex and Gender Information Value Date Recorded Sex Assigned at Not on file Legal Sex Female 3:06 PM EDT Gender Identity Not on file Sexual Orientation Not on file Last Filed Vital Signs Vital Sign Reading Time Taken Comments Blood Pressure 120/70 07/07/2023 3:05 PM EST Pulse 68 07/07/2023 3:05 PM EST Temperature - - Respiratory Rate 18 10/28/2022 2:06 PM EDT Oxygen Saturation 96% 07/07/2023 3:05 PM EST Inhaled Oxygen Concentration - - Weight 98.9 kg (218 lb) 07/07/2023 3:05 PM EST Height 157.5 cm (5' 2 ) 07/07/2023 3:05 PM EST Body Mass Index 39.87 07/07/2023 3:05 PM EST Plan of Treatment Health Maintenance Due Date Last Done Comments Breast Cancer Screening 1960 Pneumococcal Vaccine: 50+ Ye ars (1 of 2 - PCV) 1979 Colorectal Cancer Screening: Annual FOBT 2009 Colorectal Cancer Screening: Colonoscopy 2009 Colorectal Cancer Screening: Sigmoidoscopy 2009 Influenza Vaccine (#1) 2025 Hepatitis B Vaccine Aged Out No longe r eligible based on patient's age to complete this topic Insurance Care Teams Clinical Engineering Director Relationship Specialty Start Date [place] Justin [place] [address] [place] [address] CHRISTINE HAWKINS [id number] PCP - General Internal Medicine 08/13/21
--- OUTSIDE RECORDS SUMMARY | 2024-12-07 15:25 | XMS_ITS | Data Portability ---
Author Organization [place] - [facility] - RN FIELD CASE MANAGER Address [address] [place] [address] Care Team Providers Care Crusher Tender Name Role Phone ISELA DIETRICH Primary Care Provider Assessment Encounter Date Assessment Date Assessment LastModified by Organization Details LastModified Time 05/02/2018 05/02/2018 prescriptions written for chroninc meds and she has a appt with primary care next week akharod Not available 05/02/2018 14:02:33 Plan of Treatment Reminders Order Date Submit Date Provider Last Modified By Organization Details Last Modified Time Details Appointments None record ed. Lab None record ed. Referral None record ed. Procedures None record ed. Surgeries None record ed. Imaging None record ed. Medication Orders None record ed. Patient TargetsNo targets recorded. Patient InstructionsNo instructions recorded. Reason for Referral None Reported. Procedures Surgical History Date Name Laterality Status Provider Name and Address Organization Details Recorded Time Appendectomy completed JARED Brar [facility] [employer] [facility] 05/02/2018 13:31:43 Imaging Results None recorded. Procedure Notes None recorded. Medical Equipment None Reported. Medications Name Sig Start Date Stop Date Status Note LastModified by Organization Details LastModified Time amlodipine 5 mg tablet TAKE 1 TABLET BY MOUTH ONCE DAILY active Not Available Not Available No t Available pramipexole 0.5 mg tablet TAKE 1 TABLET BY MOUTH ONCE DAILY AT BEDTIME active Not Available Not Available No t Available sertraline 50 mg tablet TAKE 1 TABLET BY MOUTH ONCE DAILY active Not Available Not Available No t Available magnesium active Not Available Not Catarina ilable Not Available Zoloft active Not Available Not Availa ble Not Available pramipexole active Not Available Not A vailable Not Available amlodipine active Not Available Not Av ailable Not Available Vitamin D3 active Not Available Not Av ailable Not Available Atacand active Not Available Not Avail able Not Available CoQ-10 active Not Available Not Availa ble Not Available krill oil active Not Available Not Catarina ilable Not Available Vitals None Recorded Social History Question Answer Notes LastModified by Organizat ion Details LastModified Time Tobacco Smoking Status Former Smoker JARED PULIDO sajan, [facility] 05/02/2018 13:31:34 What Was The Date Of Your Most Recent Tobacco Screening? 05/02/2018 Information n ot available 12/14/2018 Sex: Unknown Functional Status None recorded. Mental Status None recorded. Family History Nothing Reported. Medical History Condition Response Coronary Artery Disease N Other N Gout N Kidney Stones N Hyperthyroidism N Depression N COPD N Hypothyroidism N Anemia N Deep Vein Thrombosis N Diabetes N Anxiety Disorder Y Autoimmune disease N Bleeding Disorder N Seizures/Epilepsy N Arthritis Y Tuberculosis N Cancer N Stroke N Diverticulitis N Asthma N Reflux/GERD N High Cholesterol Y Hepatitis N Liver Disease N Heart Disease N Bronchitis N Pulmonary Embolism N Headaches N Hypertension Y Kidney Disease N Gynecological HistoryNo gynecological history recorded. Obstetrics History GPAL:G 0 P 0 0 0 0 Past Encounters Encounter ID Performer Location Encounter Start Date Encounter Closed Date Diagnosis/Indication Diagnosis SNOMED-CT Code Diagnosis ICD10 Code Diagnosis Note [id number] JAXON NORTON MD Main Office [address] [facility] [address] [place] [address] 05/02/2018 13:07:15 05/04/2018 00:05:52 Health Concerns Section Related Observation LastModified by Organization Detai ls LastModified Time None Recorded Concern Status LastModified by Organization Details LastModified Time None Recorded Advance Directives Directive None Recorded Payers Insurance Date Sequence Insurance Name Policy Number Policy Fisher Covered Member ID Fisher Member ID Guarantor Name 04/29/2018 1 [place] [facility] BC[employer] ([place] ) [id number] Tatyana Martinez [id number] Tatyana Juarez Notes Date Note Type Note Provider Name and Address Organization Details Recorded Time 05/02/2018 text/html s/p lap jessica NORTON MD [address], [address], [facility] 05/02/2018 14:02:51 OBGyn Episode No OBEpisode recorded.
--- OUTSIDE RECORDS SUMMARY | 2024-12-07 15:25 | XMS_ITS | Patient Health Record ---
Author Organization [facility] Address [address] [place] [address] Care Team Providers Care Artist'S Model Name Role Phone Gaston Swan MD Primary Care Provider Arik Martinez Unavailable [phone] Migration, Provider Unavailable Unavailable Allergies Allergen (clinical [...] review and pick correct strength-formulat ion from Vikian options. If intended option is not shown, discontinue and re-order from Quick Search* Active Zoloft *Please review and pick correct strength-formulat ion from Vikian options. If intended option is not shown, discontinue and re-order from Quick Search* Active Cholecalciferol *Please review and pick correct strength-formulat ion from Qifangspan options. If intended option is not shown, discontinue and re-order from Quick Search* Active amLODIPine Benzoate *Please revi ew and pick correct strength-formulat ion from Vikian options. If intended option is not shown, discontinue and re-order from Quick Search* Active traMADol HCl 50 MG 1 tab(s) orally q6h prn pain 09/08/2021 Not-Taking Voltaren *Please review and pick correct strength-formulat ion from Vikian options. If intended option is not shown, discontinue and re-order from Quick Search* Active Flonase Allergy Relief *Please review and pick correct strength-formulat ion from Vikian options. If intended option is not shown, discontinue and re-order from Quick Search* Active traMADol HCl ER 100 MG 1 tab(s) orally once a day for 30 day(s) 09/08/2021 Not-Taking Esomeprazole Magnesium *Please review and pick correct strength-formulat ion from Vikian options. If intended option is not shown, discontinue and re-order from Quick Search* Active Metoprolol Succinate *Please rev iew and pick correct strength-formulat ion from Vikian options. If intended option is not shown, discontinue and re-order from Quick Search* Active diazePAM 5 MG 1 tab(s) orally one hour prior to MRI repeat 5 minutes before MRI is needed 07/21/2021 Active hydrOXYzine HCl *Please review and pick correct strength-formulat ion from Vikian options. If intended option is not shown, [...] Problem Status W/U Status Risk Notes Problem 583820501 Lumbago with sciatica, right side (M54.41) Active confirmed Problem 90484306 DDD (degenerativ e disc disease), lumbar (M51.36) Active confirmed Problem 43313116 Other chronic pain (G89.29) Active confirmed Problem Primary osteoarthritis of right hip (M16.11) Active confirmed Problem 164371262 Status post righ t hip replacement (Z96.641) Active confirmed Problem [id number] Arthritis of right hip (M16.11) Active confirmed Encounters Encounter Location Date Provider Diagnosis [facility] [address] [place] [address] 04/19/2024 Provider Migration Plan Of Treatment No Information Insurance Providers Payer Name Payer Address Payer Phone Subscriber Number Group Number Insured Name Patient Relationship to Insured Coverage Start Date Coverage End Date [employer] [address] [place] [address] [phone] [id number] Tatyana Hunter Self - patient is the insured 0 Medical (General) History Medical History History ICD Code Hypertension Hyperlipidemia Food allergies (Eggs) Guillain-Chesterfield Syndrome PE Surgical History Surgery Date(Month/Year) right total hip arthroplasty, anterior a pproach. 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
--- OUTSIDE RECORDS SUMMARY | 2024-12-07 15:25 | XMS_ITS | Data Portability ---
Author Organization CHRISTINE SWAN MD [facility], Assisted Living Address [address] [place] [address] Assessment No assessment recorded. Plan of Treatment Reminders Order Date Submit Date Provider Last Modified By Organization Details Last Modified Time Details Appointments None recorded. Lab None recorded. Referral None recorded. Procedures None recorded. Surgeries None recorded. Imaging XR, chest, 2 view 2020 021 [facility], [address], [place], [address], 15:56:54 Medication Orders azithromyci n 250 mg tablet 2020 021 [facility]armacy #[id number], [address] [place], [address], 13:13:16 tramadol 50 mg tablet 2020 021 [facility] #[id number], [address] [place], [address], 12:59:42 tramadol 50 mg tablet 2020 021 [facility]/Pharmacy #[id number], [address] [place], [address], 1 18:07:36 tramadol 50 mg tablet 2020 021 [facility] #[id number], [address] [place], [address], 11:42:53 Patient TargetsNo targets recorded. Patient InstructionsNo instructions recorded. Reason for Referral None Reported. Results Created Date Observation Date Name Description Value Unit Range Abnormal Flag Note LastModifiedBy Organization Detail LastModifiedTime 08/22/19 21 lawrence newmangr am No observ ation record ed. asandru Not Available 2020 08:43:59 08/31/19 21 08/28/2020 MRI, lumba r spine , w/o contr ast No observ ation record ed. [facility] [address] [place], [address], 09/01/2020 11:05:27 Result Notes None recorded. Problems Name Problem SNOMED Code Status Onset Date Resolution Date Notes Provider Name and Address Organization Details Recorded Time Restless legs 28878023 Active 2020 Gaston Swan MD [address], [place], [address] , CHRISTINE SWAN MD [facility] 08:38:14 Chronic back pain 960995723 Active 2020 Gaston Swan MD [address], [place], [address] , CHRISTINE SWAN MD [facility] 08:38:14 Hypertensive disorder 07547896 Active 2020 Gaston Swan MD [address], [place], [address] , CHRISTINE SWAN MD [facility] 08:38:14 Hyperlipidemia 06669814 Active 2020 Gaston Swan MD [address], [place], [address], CHRISTINE SWAN MD [facility] 08:38:14 Depressive disorder 39857102 Active 2020 Gaston Swan MD [address] [facility], [place], [address], CHRISTINE SWAN MD [facility] 08:38:14 Problem Notes None recorded. Medical Equipment None Reported. Allergies No known drug allergies Medications Name Sig Start Date Stop Date Status Note LastModified by Organization Details LastModified Time gabapentin 600 mg tablet TAKE 1 TABLET 3 TIMES A DAY BY ORAL ROUTE. active Not Available Not Available No t Available azithromyci n 250 mg tablet TAKE 2 TABLETS BY MOUTH TODAY, THEN TAKE 1 TABLET DAILY FOR 4 DAYS active Not Available Not Available No t Available amlodipine 5 mg tablet TAKE 1 TABLET BY MOUTH EVERY DAY active Not Available Not Available No t Available tramadol 50 mg tablet TAKE 1 AND A HALF TABLETS BY MOUTH TWICE DAILY IF NEEDED FOR PAIN active Not Available Not Available No t Available pramipexole 0.5 mg tablet TAKE 1 TABLET BY MOUTH EVERY DAY active Not Available Not Available No t Available amoxicillin 875 mg tablet Take 1 tablet every 12 hours by oral route for 1 day. active Not Available Not Available No t Available amlodipine 10 mg tablet TAKE 1 TABLET BY MOUTH EVERY DAY active Not Available Not Available No t Available gabapentin 300 mg capsule TAKE ONE CAPSULE BY MOUTH EVERY MORNING AND TAKE TWO CAPSULES BY MOUTH AT BEDTIME active Not Available Not Available No t Available Advil 200 mg tablet Take 1 tablet every 6 hours by oral route. active Not Available Not Available No t Available codeine 10 mg-guaifene sin 100 mg/5 mL oral liquid Take 10 mL 3 times a day by oral route as needed. 2020 active Not Available Not Available Not Avai lable gabapentin 100 mg capsule active Not Available Not Available Not Available methylpredn isolone 4 mg tablets in a dose pack TAKE 6 TABLETS ON DAY 1 DIRECTED ON PACKAGE AND DECREASE BY 1 TAB EACH DAY FOR A TOTAL OF 6 DAYS active Not Available Not Available No t Available losartan 50 mg-hydrochl orothiazide 12.5 mg tablet TAKE 1 TABLET BY MOUTH EVERY DAY active Not Available Not Available No t Available fluoxetine 20 mg capsule active Not Available Not Available Not Available sertraline 50 mg tablet TAKE 1 TABLET BY MOUTH EVERY DAY active Not Available Not Available No t Available escitalopra m 10 mg tablet active Not Available Not Available Not Available rosuvastati n 5 mg tablet active Not Available Not Available Not Available rosuvastati n 10 mg tablet TAKE 1 TABLET BY MOUTH EVERY DAY 2020 active Not Available Not Available Not Avai lable amlodipine 5 mg po qd 08/20 completed Not Available Not Available Not Available Vitamin D active Not Available Not Catarina ilable Not Available Vitals Date Recorded Heart rate Oxygen saturation Oxygen saturation in Arterial blood by Pulse oximetry Respiratory rate Systolic And Diastolic Provider Name and Address Organization Details Last Updated DateTime 1 80 /min 98 % 98 % 18 /min 130/84 mm[Hg] Gaston Swan MD [address] [facility], [place], [address], CHRISTINE NINO 1 11:36:36 Date Recorded Heart rate Respiratory rate Systolic And Diastolic Provider Name and Address Organization Details Last Updated DateTime 10/16/2020 95 /min 18 /min 160/100 mm[Hg] Gaston Swan MD [address] [place] [address], [place], [address], [place] Krysten NINO 10/16/2020 10:16:22 Date Recorded Respiratory rate Systolic And Diastolic Provider Name and Address Organization Details Last Updated DateTime 11/21/2020 18 /min 164/104 mm[Hg] Gaston Swan MD [address] [place] [address], [place], [address], [place] Krysten NINO 11/21/2020 12:54:11 Date Recorded Oxygen saturation Oxygen saturation in Arterial blood by Pulse oximetry Respiratory rate Provider Name and Address Organization Details Last Updated DateTime 02/02/2021 97 % 97 % 18 /min Gaston Swan MD [address] [place] [address], [place], [address] , [place] Krysten NINO 02/02/2021 13:10:39 Date Recorded Heart rate Oxygen saturation Oxygen saturation in Arterial blood by Pulse oximetry Respiratory rate Systolic And Diastolic Provider Name and Address Organization Details Last Updated DateTime 1 90 /min 95 % 95 % 18 /min 135/86 mm[Hg] Gaston Swan MD [address] [facility], [place], [address], [facility] 1 12:09:20 Social History None recorded. Functional Status None recorded. Mental Status None recorded. Family History Nothing Reported. Medical History No medical history recorded. Gynecological HistoryNo gynecological history recorded. Obstetrics History GPAL:G 0 P 0 0 0 0 Immunizations Vaccine Type Date Status Note Provider Nam e and Address Organization Details Recorded Time COVID-19, mRNA, LNP-S, PF, 30 mcg/0.3 mL dose 09/16/2020 completed Gaston Swan MD [address] [place] [address], [place], [address], [facility] GASTON SWAN MD [facility] 10/16/2020 10:16:37 Past Encounters Encounter ID Performer Location Encounter Start Date Encounter Closed Date Diagnosis/Indication Diagnosis SNOMED-CT Code Diagnosis ICD10 Code Diagnosis Note [id number] Gaston Swan MD MAIN [facility] [address] [place] [address] 08/04/2020 11:36:53 08/04/2020 11:56:54 Lumbar radiculopathy 461610856 M54.16 ct toradol gabapentin , used 2 medrol packs and it helped. [id number] Gaston Swan MD MAIN OFFICE [address] [place] [address] 08/20/2020 09:37:13 08/20/2020 10:59:38 Chronic back pain 686865277 M54.9 ct antiinflam medication , rest f/u after MRI spine pain management referral if pain persists. Hypertensive disorder 38 501169 I10 Hyperlipidemia 65792973 E78.5 ct statins [id number] Gaston Swan MD MAIN OFFICE [address] [place] [address] 08/25/2020 09:27:13 08/25/2020 09:47:09 Exposure to SARS-CoV-2 661894820 Z20.822 Depressive disorder [address] medication [id number] Gaston Swan MD MAIN OFFICE [address] [place] [address] 09/15/2020 11:35:42 09/15/2020 11:44:12 Chronic back pain 212231924 M54.9 ct anti inflam medication , rest f/u after MRI spine pain management referral if pain persists. seen by orthopedic s awaiting approval for injection to spine would like refill for pain medication . [id number] Gaston Swan MD MAIN OFFICE [address] [place] [address] 10/16/2020 09:55:01 10/16/2020 10:23:26 Lumbar radiculopathy 846417893 M54.16 ct toradol gabapentin , pending second injection for pain lower back Chronic back pain 705131 002 M54.9 aspercream lidocaine spray , rest would like refill for pain medication . [id number] Gaston Swan MD MAIN OFFICE [address] [place] [address] 11/21/2020 12:46:36 11/21/2020 13:00:46 Chronic back pain 617536892 M54.9 asper cream , lidocaine spray , reststretc hes f/u for second injection would like refill for pain medication . Hypertensive disorder 38 971874 I10 increase amlodipine to 10 [place]d [id number] Gaston Swan MD MAIN OFFICE [address] [place] [address] 02/02/2021 13:08:37 02/02/2021 13:14:47 Cough 28087901 R05 COVID-19 952692844 U07.1 stable denies sob no fever [id number] Gaston Swan MD MAIN OFFICE [address] [place] [address] 02/12/2021 11:53:14 02/12/2021 12:12:46 Persistent cough 561204791 R05 ct codeine prn cough Health Concerns Section Related Observation LastModified by Organization Detai ls LastModified Time None Recorded Concern Status LastModified by Organization Details LastModified Time None Recorded Advance Directives Directive None Recorded Payers Insurance Date Sequence Insurance Name Policy Number Policy Fisher Covered Member ID Fisher Member ID Guarantor Name 02/11/2021 1 [employer] [id number] Tatyana Benton [id number] Tatyana Chen Notes Date Note Type Note Provider Name and Address Organization Details Recorded Time 09/15/2020 text/html pt reports still in pain with lower back, pending an injection, for pain, would like refill for toradol until she gets the injection. reports more activity then usual and has severe pain , advised to take one and 1/2 tab toradol bid , sees a spinal specialist [facility]. Gaston Swan MD [address] [facility], [place], [address], [facility] GASTON SWAN MD [facility] 09/15/2020 11:43:42 10/16/2020 text/html pt reports still has pain to R lower back radiating to R thigh inner side, first spinal injection was October 02 with [facility]. is f/u with ortho on October 21. would like more pain medication until then. Gaston Swan MD [address] [facility], [place], [address], [facility] Krysten SWAN MD [facility] 10/16/2020 10:23:17 11/21/2020 text/html pt reports sched uled for R lower spine, second injection, reports small benefit from first injection now pain is to knee level instead of foot level. pain 6/10 constant at this time, would like more pain medication until improved. Gaston Swan MD [address] [facility], [place], [address], [facility] Krysten SWAN MD [facility] 11/21/2020 13:00:40 02/02/2021 text/html COVID-19 Symptom s September 2019Reported bypatient.COVID-19 Signs and Symptomscough worsening; fever resolved; shortness of breath resolved; chills resolved; repeated shaking with chills resolved;muscle pain worsening;headache worsening; sore throat resolved;new loss of taste or smell; vomiting or diarrhea resolved; fatigue resolved;anorexia worsening Contacts and Exposureclose contact with a confirmed or suspected case of COVID-19 Quality:dry cough Associated Symptoms:no sputum production; no wheezing; no runny nose; no vomiting; no diarrhea; no body aches; no nausea; no change in mental status; no hypotension; no tachycardia Prior Labs and ImagingCOVID-19 nasopharyngeal swab; positive pcr test Gaston Swan MD [address] [facility], [place], [address], [facility] Krysten SWAN MD [facility] 02/02/2021 13:14:23 02/12/2021 text/html covid + , still fatigued SOB, no fevers, cough dry Gaston Swan MD [address] [facility], [place], [address], [facility] Krysten SWAN MD [facility] 02/12/2021 12:12:32 OBGyn Episode No OBEpisode recorded.
--- OUTSIDE RECORDS SUMMARY | 2024-12-07 15:25 | XMS_ITS | Data Portability ---
Author Organization [place] - [place] [facility] & [place] [facility] ADMIN Address [address] [place] [id number] Care Team Providers Care Hat Brusher Machine Name Role Phone [facility] SCOTTY Primary Care Provider Assessment No assessment recorded. Plan of Treatment Reminders Order Date Submit Date Provider Last Modified By Organization Details Last Modified Time Details Appointments OV EST 15 2025 03:30P M Estefany Chavis NP Not available Not available Not available Lab urinalysi s, dipstick 2023 024 [email or web address] [facility], [address], [place], [address], 05/07/2024 16:04:32 urinalysi s, dipstick 2023 024 [email or web address] [facility], [address] [facility] [address], [place], [address], 03/06/2024 16:22:45 Referral None recorded. Procedures None recorded. Surgeries None recorded. Imaging US, renal 2023 024 [email or web address] [facility] (Centralized Scheduling), [address] , [place], [address], 05/14/2024 08:37:09 XR, kidney + ureter + bladder 2023 024 [email or web address] [facility] (Centralized Scheduling), [address], [place], [address], 05/07/2024 16:38:55 US, renal 2023 024 [email or web address] [facility] (Centralized Scheduling), [address], [place], [address], 03/15/2024 15:12:46 XR, kidney + ureter + bladder 2023 024 [email or web address] [facility] (Centralized Scheduling), [address], [place], [address], 03/06/2024 16:24:19 Medication Orders methenami ne hippurate 1 gram tablet 2024 025 [facility] #[id number], [address] [place] [address], [id number], 09/03/2024 16:00:49 methenami ne hippurate 1 gram tablet 2023 024 [facility] #[id number], [address] [place] [address], [id number], 05/07/2024 16:05:42 methenami ne hippurate 1 gram tablet 2023 024 [facility] #[id number], [address] [place] [address], [id number], 03/06/2024 16:21:55 Patient TargetsNo targets recorded. Patient InstructionsNo instructions recorded. Reason for Referral None Reported. Results Created Date Observation Date Name Description Value Unit Range Abnormal Flag Note LastModifiedBy Organization Detail LastModifiedTime 03/06/2003/06/2024 urina lysis , dipst ick Leukocytes (reference range) negati ve Not Available [facility] [address], [place], [address], 03/06/2024 16:22:15 10/15/20 24 03/06/2024 urina lysis , dipst ick Nitrite (reference range:) negati ve Not Available [place] [address] [address] [facility] [address], [place], [address], 03/06/2024 16:22:15 03/06/20 24 03/06/2024 urina lysis , dipst ick Urobilinogen (reference range) 0.2 Not Available [facility] [place] [address] [address] [facility] [address], [place], [address], 03/06/2024 16:22:15 03/06/20 24 03/06/2024 urina lysis , dipst ick Protein (reference range) negati ve Not Available [place] [address] [address] [facility] [address], [place], [address], 03/06/2024 16:22:15 03/06/20 24 03/06/2024 urina lysis , dipst ick pH (reference range 5-8.5) 6.0 Not Available [facility] [place] [place] [address] [address] [facility] [address], [place], [address], 03/06/2024 16:22:15 03/06/20 24 03/06/2024 urina lysis , dipst ick Blood (reference range:) negati ve Not Available [place] [address] [address] [facility] [address], [place], [address], 03/06/2024 16:22:15 03/06/20 24 03/06/2024 urina lysis , dipst ick Specific [place] (reference range) 1.015 Not Available [place] [address] [address] [facility] [address], [place], [address], 03/06/2024 16:22:15 03/06/20 24 03/06/2024 urina lysis , dipst ick Ketone (reference range) negati ve Not Available [place] [address] [address] [facility] [address], [place], [address], 03/06/2024 16:22:15 03/06/20 24 03/06/2024 urina lysis , dipst ick Bilirubin (reference range) negati ve Not Available [place] [address] [address] [facility] [address], [place], [address], 03/06/2024 16:22:15 03/06/20 24 03/06/2024 urina lysis , dipst ick Glucose (reference range) negati ve Not Available [place] [address] [address] [facility] [address], [place], [address], 03/06/2024 16:22:15 03/06/2003/06/2024 urina lysis , dipst ick Color (reference range: yellow-brown ) Yellow Not Available [facility] [place] [address] [address] [facility] [address], [place], [address], 03/06/2024 16:22:15 05/07/20 24 05/07/2024 urina lysis , dipst ick Leukocytes (reference range) negati ve Not Available [place] [address] [address] [facility] [address], [place], [address], 05/07/2024 16:03:58 05/07/20 24 05/07/2024 urina lysis , dipst ick Nitrite (reference range:) negati ve Not Available [place] [address] [address] [facility] [address], [place], [address], 05/07/2024 16:03:58 05/07/20 24 05/07/2024 urina lysis , dipst ick Urobilinogen (reference range) 0.2 Not Available [place] [address] [address] [facility] [address], [place], [address], 05/07/2024 16:03:58 05/07/20 05/07/2024 urina lysis , dipst ick Protein (reference range) negati ve Not Available [place] [address], [place], [address], 05/07/2024 16:03:58 05/07/20 24 05/07/2024 urina lysis , dipst ick pH (reference range 5-8.5) 6.0 Not Available [facility] [address], [place], [address], 05/07/2024 16:03:58 05/07/20 24 05/07/2024 urina lysis , dipst ick Blood (reference range:) negati ve Not Available [place] [address] [address] [facility] [address], [place], [address], 05/07/2024 16:03:58 05/07/20 24 05/07/2024 urina lysis , dipst ick Specific [place] (reference range) 1.015 Not Available [facility] [place] [address], [place], [address], 05/07/2024 16:03:58 05/07/20 24 05/07/2024 urina lysis , dipst ick Ketone (reference range) negati ve Not Available [place] [address] [address] [facility] [address], [place], [address], 05/07/2024 16:03:58 05/07/20 24 05/07/2024 urina lysis , dipst ick Bilirubin (reference range) negati ve Not Available [place] [address] [address] [facility] [address], [place], [address], 05/07/2024 16:03:58 05/07/20 24 05/07/2024 urina lysis , dipst ick Glucose (reference range) negati ve Not Available [place] [address], [place], [address], 05/07/2024 16:03:58 05/07/20 24 05/07/2024 urina lysis , dipst ick Color (reference range: yellow-brown ) Yellow Not Available [facility] [address], [place], [address], 05/07/2024 16:03:58 06/12/19 25 06/11/2024 renal ,bila teral US [facility] [address] [place] [address] Phone: Fax: Name: TATYANA CENTENO Exam Date: : 1959 Age 64 years Gender : F Access ion: [id number] Physic jaki: JACQUE CHAVIS L Facili ty: [facility] Facili ty HSV: Outpat ient Exam: RENAL, [...] Bakari Escalante 025 Thank you for referr hemalatha [facility], TATYANA to [facility]. Legall y authen ticate d by BIN MICHEL 06-11 15:19: 38 CC'ed Logic: Orderi ng Provid er: PALMIRA Castellanos Attend ing Provid er: PALMIRA Castellanos Referr ing Provid er: PALMIRA Castellanos Admitt ing Provid er: PALMIRA Castellanos [email or web address] [facility] - [facility] Therapy [address] [facility], [place], [address], 06/12/2024 14:56:03 Result Notes None recorded. Problems Name Problem SNOMED Code Status Onset Date Resolution Date Notes Provider Name and Address Organization Details Recorded Time Recurrent urinary tract infection 767674675 Active 2023 Roxanna Crase null, [place] - [facility] [place] & [place] 4 15:18:53 Hypercholester olemia 41300482 Active 2023 Roxanna Crase [place], [place] [facility] [place] 15:19:01 Anxiety 50054969 Active 2023 Roxanna Crase null, [place] [facility] [place] 4 15:19:08 Cerebrovascula r accident 990656764 Active 2023 Roxanna Crase null, [place] [facility] [place] 4 15:19:18 Sleep apnea 43923264 Active 2023 Roxanna Crase [place] [facility] [place] 4 15:19:26 Gastroesophage al reflux disease 559974156 Active 2023 Roxanna Crase null, [place] [facility] [place] 15:19:31 Depressive disorder 74411792 Active 2023 Roxanna Crase [place], [place] [facility] [place] 15:19:38 Arthritis 3775058 Active 2023 Roxanna Crase null, [place] [facility] [place] 15:19:49 Notes:issues with anestesia Problem Notes None recorded. Procedures Surgical History Date Name Laterality Status Provider Name and Address Organization Details Recorded Time excision of bunion completed Roxanna Deborah SHILPA [facility] & [place] 03/06/2024 15:22:19 revision of knee arthroplasty completed [facility] SHILPA [facility] & [place] 03/06/2024 15:22:29 partial right hip replacement by prosthesis completed [facility] SHILPA [facility] & [place] 03/06/2024 15:22:48 partial replacement of joint of right shoulder completed [facility] SHILPA [facility] & [place] 03/06/2024 15:23:03 Appendectomy completed [facility] SH[facility]PA [facility] & [place] 03/06/2024 15:23:09 complete repair of rotator cuff completed [facility] SH[facility]PA [facility] & [place] 03/06/2024 15:23:19 Imaging Results None recorded. Procedure Notes None recorded. Medical Equipment None Reported. Allergies Allergen ID Allergen Name Allergen Category Reaction Reaction Severity Criticality Documentation Date Start Date Code Code System Note Provider Name and Address Organization Details Recorded Time 298334 Xanax medicatio n Not available Not available Not available 03/06/2024 75529 3 RxNorm SHILPA Virgen [facility] & [place] 4 15:18:04 669848 oxycodone medicatio n Not available Not available Not available 03/06/2024 7804 RxNorm SHILPA [facility]gen [facility] & [place] 4 15:18:13 Medications Name Sig Start Date [...] blood by Pulse oximetry Heart rate Systolic And Diastolic Provider Name and Address Organization Details Last Updated DateTime 4 97.7 [degF] 99 % 99 % 68 /min 126/77 mm[Hg] Roxanna Kim [facility] - [place] & [place] 4 15:38:49 Social History None recorded. Functional [...] SNOMED-CT Code Diagnosis ICD10 Code Diagnosis Note [id number] Estfeany Chavis NP, [facility]1 [address] [facility] [address] [place] [address] 03/06/2024 14:53:59 03/06/2024 15:51:35 Recurrent urinary tract infection 180102242 N39.0 UA negativeDi scussed Active bowel habits, probiotics , cranberry supplement s Qday-tid, hygeine, voiding prior to and post sex (wash), and wipe front to back. Schedule Renal US and KUBStart Methenamin e 1 gram bid RTC in 8 weeks for f/u Nocturia 925864528 R35.1 [id number] Estefany Chavis NP, [facility]-1 00 [address] [facility] [address] [place] [address] 05/07/2024 15:21:55 05/07/2024 16:02:09 Recurrent urinary tract infection 781951630 N39.0 UA negativeRe send Renal US and KUB orderConti nue Methenamin e 1 gram bidRTC in 4 months for f/u [id number] Estefany Chavis NP, [facility] Urology-1 00 [address] [facility] [address] [place] [address] 09/03/2024 15:27:17 09/03/2024 15:46:13 Recurrent urinary tract infection 878432583 N39.0 Continue Methenamin e 1 gram bidRTC [...] Name 09/03/2024 1 [place] Tatyana portillo [id number] Tatyana portillo 09/03/2024 2 [place] [id number] Tatyana Benton [id number] Tatyana portillo Notes Date Note Type Note [...] 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 06/11/19 25: Renal US normal Estefany Chavis, [employer], [address], [place], [address], [facility] - [place] & [place] 09/03/2024 16:01:04 OBGyn Episode No OBEpisode recorded.
--- NOTE | 2024-12-07 15:30 | CT_ITS ---
FINAL REPORT TECHNIQUE: Thin section axial CT images of the facial bones and sinuses were obtained without contrast. Coronal and sagittal reformatted images were also obtained. This study was performed with techniques to keep radiation doses as low as reasonably achievable, (ALARA). Individualized dose reduction techniques using automated exposure control or adjustment of mA and/or kV according to the patient's size were employed. CLINICAL HISTORY: evaluation of the sinus cavities Pt complains of constant feeling of sinus infection COMPARISON: None FINDINGS: CT SINUS There is no evidence of mucosal thickening. No fluid levels are identified. The ostiomeatal units have an unremarkable appearance. The nasal septum is deviated 5 mm to the right. The frontal sinuses are aplastic. No fracture or acute bony abnormality is identified. IMPRESSION: 1. Aplastic frontal sinuses. 2. Mild nasal septal deviation, otherwise unremarkable sinuses. Reviewed, Interpreted and Dictated by Quan Pimentel MD Transcribed by Yissel Shepherd Authenticated and [facility]
== END 2024-12-07 23:59 | disposition home or self-care (01) ==
LOC: RAD 15:23
PROVIDERS: PCP Nurse Practitioner Family; Visit Provider Student in an Organized Health Care Education/Training Program
DX: J34.2 Deviated nasal septum (principal); J34.89 Other specified disorders of nose and nasal sinuses; J32.9 Chronic sinusitis, unspecified
CPT/HCPCS: 70486

== ENCOUNTER 2025-01-03 15:14 | Outpatient (POV) | payer MEDICARE, BC, SELFPAY ==
--- OUTSIDE RECORDS SUMMARY | 2024-04-19 17:00 | XMS_ITS ---
Author Organization [facility] Address [address] [place] [id number] Care Team Providers Care Yard Warehouse Worker Name Role Phone Gaston Swan MD Primary Care Provider UnavailArik Bustamante Unavailable [phone] Migration, Provider Unavailable Unavailable Allergies Allergen (clinical drug ingredient) Drug/Non Drug Allergy documented on EMR Reaction Allergy Type Onset Date Status oxycodone oxyCODONE Unknown Drug Allergy Active alprazolam Xanax Unknown Drug Allergy Active acetaminophen / oxycodone Percocet Unknown Drug Allergy Active oxycodone OxyCONTIN Unknown Drug Allergy Active REAS[facility] VISIT [facility] Encounter Medications Medication SIG (Take, Route, Frequency, Duration) Notes Start Date End Date Status Gabapentin *Please review and pick correct strength-formulat ion from [employer] options. If intended option is not shown, discontinue and re-order from Quick Search* Active traMADol HCl 50 MG 1 tab(s) orally q6h prn pain 09/08/2021 Not-Taking traMADol HCl ER 100 MG 1 tab(s) orally once a day; Duration: 30 day(s) 09/08/2021 Not-Taking diazePAM 5 MG 1 tab(s) orally one hour prior to MRI repeat 5 minutes before MRI is needed 07/21/2021 Active traMADol HCl 50 MG 1 tab(s) orally every 4 hours 07/14/2022 Active Pramipexole Dihydrochloride *Please review and pick correct strength-formulat ion from Aureliantan options. If intended option is not shown, [...] Active Encounters Encounter Location Date Provider Diagnosis [facility] [address] [place], [place] [address] 04/19/2024 Provider Migration Plan Of Treatment No Information
--- OUTSIDE RECORDS SUMMARY | 2025-01-03 15:18 | XMS_ITS | Clinical Summary ---
Author Organization [facility] Facility Address [address] [address] Care Team Providers Care Stem Sizer Name Role Phone Justin Guzmán MD Primary Care Provider [phone] Allergies Active Allergy Reactions Criticality Noted Date [...] to complete this topic Insurance Care Teams Stem Sizer Relationship Specialty Start [place] Justin [place] [address] [place] [address] [place] [id number] PCP - General Internal Medicine 08/13/21
--- OUTSIDE RECORDS SUMMARY | 2025-01-03 15:19 | XMS_ITS | Patient Health Record ---
[facility] Organization [facility] Address [address] [place] [address] Care Team Providers Care Group Manager Name Role Phone Gaston Swan MD Primary Care Provider Arik Martinez Unavailable [phone] Migration, Provider Unavailable Unavailable Allergies Allergen (clinical [...] review and pick correct strength-formulat ion from FeedBurneran options. If intended option is not shown, discontinue and re-order from Quick Search* Active Zoloft *Please review and pick correct strength-formulat ion from [employer] options. If intended option is not shown, discontinue and re-order from Quick Search* Active Cholecalciferol *Please review and pick correct strength-formulat ion from [employer] options. If intended option is not shown, discontinue and re-order from Quick Search* Active amLODIPine Benzoate *Please revi ew and pick correct strength-formulat ion from [employer]an options. If intended option is not shown, discontinue and re-order from Quick Search* Active traMADol HCl 50 MG 1 tab(s) orally q6h prn pain 09/08/2021 Not-Taking Voltaren *Please review and pick correct strength-formulat ion from [employer] options. If intended option is not shown, discontinue and re-order from Quick Search* Active Flonase Allergy Relief *Please review and pick correct strength-formulat ion from [employer] options. If intended option is not shown, discontinue and re-order from Quick Search* Active traMADol HCl ER 100 MG 1 tab(s) orally once a day; Duration: 30 day(s) 09/08/2021 Not-Taking Esomeprazole Magnesium *Please review and pick correct strength-formulat ion from [employer] options. If intended option is not shown, discontinue and re-order from Quick Search* Active Metoprolol Succinate *Please rev iew and pick correct strength-formulat ion from [address] options. If intended option is not shown, discontinue and re-order from Quick Search* Active diazePAM 5 MG 1 tab(s) orally one hour prior to MRI repeat 5 minutes before MRI is needed 07/21/2021 Active hydrOXYzine HCl *Please review and pick correct strength-formulat ion from [employer] options. If intended option is not shown, [...] Problem Status W/U Status Risk Notes Problem Sciatica (39234349) Lumbago with sciatica, right side (M54.41) Active confirmed Problem Degenerative disc disease (91247005) DDD (degenerative disc disease), lumbar (M51.36) Active confirmed Problem Chronic pain (89102917) Other chronic pain (G89.29) Active confirmed Problem Localized, primary osteoarthritis of the pelvic region and thigh (039832307) Primary osteoarthritis of right hip (M16.11) Active confirmed Problem History of right hip replacement (8379839584746448 ) Status post right hip replacement (Z96.641) Active confirmed Problem Arthritis of right hip (7832334394457911 ) Arthritis of right hip (M16.11) Active confirmed Encounters Encounter Location Date Provider Diagnosis -[facility] [address] [facility] [place] [address] 04/19/2024 Provider Migration Plan Of Treatment No Information Insurance Providers Payer Name Payer Address Payer Phone Subscriber Number Group Number Insured Name Patient Relationship to Insured Coverage Start Date Coverage End Date [employer] [address] [place] [address] [phone] [id number] Mariano Daly h, Tatyana Self - patient is the insured 0 Medical (General) History Medical History History ICD Code Hypertension Hyperlipidemia Food allergies (Eggs) 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
[2025-01-03 15:38] VITALS: BP 138/76; PULSE 63; RESP 18; O2SAT 97; BMI 38.0
--- NOTE | 2025-01-03 15:53 | EXP.PAIN.SOA ---
[facility] Disclaimer: The information contained in this section may have been updated after the patient was seen, as this information can be updated by other users. Medical History Allergies Chronic sinusitis Nausea Epigastric pain Acid reflux Heartburn Bulging lumbar disc Abnormal CT of spine Skin exam, screening for cancer Lower extremity edema Myalgia due to statin Encounter to establish care Muscle cramping Fall Statin intolerance Vomiting Frequent UTI Kidney mass TIA (transient ischemic attack) Cardiac arrest Hypertension Stroke GBS (Guillain [place] syndrome) Surgical History History of bunionectomy H/O shoulder surgery History of hip replacement Total knee replacement status History of appendectomy Family History Other Hypertension Social History Smoking Status: Never smoker alcohol intake: current alcohol intake frequency: holidays/special occasions only substance use type: denies use current occupational status: retired Travel in the last 8 weeks?: None PM Subjective & Objective Subjective Subjective:: Patient is a pleasant 64-year-old female who presents today for 1 month follow-up. Today she rates her pain as 7 out of 10. She denies any new trauma or injury. She does state that the methocarbamol 500 mg twice a day that we sent and did make a very big difference in her pain and that she felt like overall it really helped without causing side effects. She states that there may be a little bit of drowsiness that she notices but she overall is retired and does not go anywhere and it works fine. Patient does however state that she did not notice any difference with the diclofenac and that she never heard from the company for the topical cream. She denies any other changes. She still has her chronic low back pain that goes into her right hip and right leg. Her Jesus Alberto has been reviewed and is appropriate. Review of Systems: General: No recent weight changes, no fever, no sleep disturbances Respiratory: No cough, no shortness of air, no recurring pulmonary infections Cardiovascular/peripheral vascular: No chest pain, no palpitations, no edema, no shortness of breath Gastrointestinal: No new onset incontinence, normal bowel movements reported Genitourinary: No new onset incontinence Musculoskeletal: Low back pain, right hip pain, right leg pain Psychiatric: [Normal mood/affect] Neurological: [Denies weakness in extremities], [denies balance issues] Pain at rest (0-10 scale): 7 Objective Objective:: Physical Exam: General: Alert and oriented x3, no acute distress, pleasant and cooperative Lungs: Respirations even and unlabored, symmetrical chest expansion Eyes: PERRL Musculoskeletal: Flexion and extension of lumbar [spine] somewhat guarded secondary to pain, [antalgic gait noted] Neurological: Speech clear, no gross sensory deficit Has patient had previous pain injection?: No Conservative treatment options previously tried: Home exercise plan Length of treatment: Longer than 12 weeks Meds Home Medications and Allergies Home Medications ?Medication ?Instructions ?Recorded ?Confirmed ?Type famotidine 20 mg tablet 20 mg PO DAILY 01/11/24 01/03/25 History fluticasone propionate 50 1 spray intranasal DAILY 01/11/24 01/03/25 History mcg/actuation nasal spray,suspension diclofenac sodium 1 % topical gel 1 ea topical TIDP PRN . 02/20/24 01/03/25 History methenamine hippurate 1 gram tablet 1 g PO BID 06/01/24 01/03/25 History rgrzwn-pfzzhycw-nejsbco 1 cap PO .With meals #100 caps 06/07/24 01/03/25 Rx 36,000-114,000-180,000 unit capsule,delay rel (Creon) sertraline 50 mg tablet See Rx Instructions .Route 06/19/24 01/03/25 Rx .COMPLEX #90 tabs buspirone 10 mg tablet 10 mg PO BID #90 tabs 07/25/24 01/03/25 Rx cholecalciferol (vitamin D3) 50 50 mcg PO DAILY 08/13/24 01/03/25 History mcg (2,000 unit) capsule aripiprazole 5 mg tablet (Abilify) 5 mg PO HS #90 tabs 10/18/24 01/03/25 Rx conjugated estrogens 0.625 mg/gram 0.3125 mg vaginal .twice weekly 10/18/24 01/03/25 History vaginal cream (Premarin) ezetimibe 10 mg tablet 10 mg PO QHS #90 tabs 10/18/24 01/03/25 Rx lisinopril 20 2 tab PO QAM #180 tabs 10/18/24 01/03/25 Rx mg-hydrochlorothiazide 12.5 mg tablet metoprolol succinate 50 mg 50 mg PO BID #180 tabs 10/18/24 01/03/25 Rx tablet,extended release 24 hr fenofibrate nanocrystallized 145 145 mg PO DAILY #90 tabs 10/27/24 01/03/25 Rx mg tablet trazodone 50 mg tablet 50 mg PO DAILY 11/21/24 01/03/25 History diclofenac sodium 75 mg 75 mg PO BID #28 tabs 11/29/24 01/03/25 Rx tablet,delayed release methocarbamol 500 mg tablet 500 mg PO BID #28 tabs 11/29/24 01/03/25 Rx ipratropium bromide 21 mcg (0.03 2 spray intranasal BID #30 mL 12/11/24 01/03/25 Rx %) nasal spray New Prescriptions to Start Prescriptions: Allergies Allergy/AdvReac Type Severity Reaction Status Date / Time acetaminophen (From Percocet) Allergy Mild Rash Verified 12/11/24 14:19 Calcium Channel Blocking AdvReac Intermediate edema Verified 12/11/24 14:19 Agents-Dih Jqwjcyj-UGC-PcK Reductase AdvReac Intermediate Myalgia Verified 12/11/24 14:19 Inhibitor alprazolam (From Xanax) AdvReac Mild Agitated Verified 12/11/24 14:19 oxycodone AdvReac Mild Other Verified 12/11/24 14:19 Assessment and Plan *Assessment and plan (1) Lumbar radiculopathy: Status: Acute Category: Medical Code(s): M54.16 - Radiculopathy, lumbar region (2) Degenerative disc disease: Status: Acute Category: Medical Plan I will refill the patient's methocarbamol and provide a 1 month supply of this medication. I did recommend her to call the [facility] for her compounded cream and I will send in a new 2-week dose of meloxicam 15 mg daily and see if this helps. Patient was counseled to discontinue all other NSAIDs and to take it with food to minimize GI upset. Patient agrees with this plan of care. Patient will return to clinic in 1 month for reevaluation of symptoms and plan of care. Patient has been instructed to contact the clinic with any concerns before the next appointment. Dr. Conner has reviewed this note and agrees with this plan of care. This note was dictated using voice recognition software and make contain errors or omissions. All injections are used with Lidocaine, Bupivacaine and dexamethasone. Occasionally urine drug screen is needed to verify patient's compliance with our office pain contract. This is ordered based off specific treatments related to chronic pain with the potential to abuse certain medications.
== END 2025-01-03 23:59 | disposition home or self-care (01) ==
PROVIDERS: PCP Nurse Practitioner Family; Visit Provider Nurse Practitioner Family
DX: M54.16 Radiculopathy, lumbar region (principal); Z79.899 Other long term (current) drug therapy; Z71.1 Person with feared health complaint in whom no diagnosis is made
CPT/HCPCS: 99212; G0463

== ENCOUNTER 2025-02-20 09:05 | Outpatient (CLI) | payer MEDICARE, BC, SELFPAY ==
[2025-02-20 14:01] LABS: Cholesterol 120 mg/dl (140-200); HDL Cholesterol 57 mg/dl (40-60); Triglycerides 81 mg/dl (30-150)
--- OUTSIDE RECORDS SUMMARY | 2025-02-21 09:47 | XMS_ITS | Clinical Summary ---
Author Organization [facility] Facility Address [address] [address] Care Team Providers Care Estate Planner Name Role Phone Justin Guzmán MD Primary Care Provider Allergies Active Allergy Reactions Criticality Noted Date [...] to complete this topic Insurance Care Teams Estate Planner Relationship Specialty Start Date End Date Justin Guzmán [place] [address] [place] [id number] PCP - General Internal Medicine 08/13/21
== END 2025-02-20 23:59 ==
LOC: LAB.DROPOF 02-21 09:46
PROVIDERS: PCP Nurse Practitioner Family; Visit Provider Nurse Practitioner Family
DX: E78.49 Other hyperlipidemia (principal)
CPT/HCPCS: 80061

== ENCOUNTER 2025-02-26 15:06 | Outpatient (CLI) | payer MEDICARE, BC, SELFPAY ==
--- NOTE | 2025-02-26 15:00 | MM_ITS ---
PROCEDURE INFORMATION: Exam: MG Bilateral Screening 3D Mammography Exam date and time: 02/26/2025 3:06 PM Age: 64 years old Clinical indication: Screening mammogram TECHNIQUE: Imaging protocol: Bilateral Screening tomosynthesis and 2D mammography including computer-aided detection (CAD) when performed. COMPARISON: No relevant prior studies available. FINDINGS: MAMMOGRAPHY: Breast composition: There are scattered areas of fibroglandular density. Mass: None. Architectural distortion: No new or suspicious architectural distortion. Calcifications: No new or suspicious calcifications are present Asymmetric density: No new or suspicious asymmetric density is present Skin thickening: None. Axillary adenopathy: None. IMPRESSION: No mammographic evidence of malignancy. Recommend annual screening mammography unless otherwise clinically indicated. ASSESSMENT: BI-RADS category 1: Negative.
--- OUTSIDE RECORDS SUMMARY | 2025-02-26 15:08 | XMS_ITS | Data Portability ---
Author Organization [place] - [facility] & [place] [facility] ADMIN Address [address] [place] [id number] Care Team Providers Care Hand Decorator Name Role Phone [facility] Primary Care Provider Assessment No assessment recorded. Plan of Treatment Reminders Order Date Submit Date Provider Last Modified By Organization Details Last Modified Time Details Appointments None recorded. Lab urinalysis , dipstick 2023 024 [email or web address] [facility], [address], [place], [address], 4 16:04:32 urinalysis , dipstick 2023 024 [email or web address] [facility], [address], [place], [address], 4 16:22:45 Referral None recorded. Procedures None recorded. Surgeries None recorded. Imaging US, renal 2023 024 [id number] [facility] (Centralized Scheduling), [address], [place], [address], 4 08:37:09 XR, kidney + ureter + bladder 2023 024 [id number] [facility] (Centralized Sched[facility]), [address], [place], [address], 4 16:38:55 US, renal 2023 024 [email or web address] [facility] (Centralized Scheduling), [address] [facility], [place], [address], 4 15:12:46 XR, kidney + ureter + bladder 2023 024 [email or web address] [facility] (Centralized Scheduling), [address] [facility], [place], [address], 4 16:24:19 Medication Orders methenamin e hippurate 1 gram tablet 2024 025 [id number], [address] [place] [address], [address], 5 16:00:49 methenamin e hippurate 1 gram tablet 2023 024 [id number], [address] [place] [address], [address], 4 16:05:42 methenamin e hippurate 1 gram tablet 2023 024 [id number], [address] [place] [address], [address], 4 16:21:55 Patient TargetsNo targets recorded. Patient InstructionsNo instructions recorded. Reason for Referral None Reported. Results Created Date Observation Date Name Description Value Unit Range Abnormal Flag Note LastModifiedBy Organization Detail LastModifiedTime 03/06/2003/06/2024 urina lysis , dipst ick Leukocytes (reference range) negati ve Not Available [facility] [address] [facility] [address], [place], [address], 03/06/2024 16:22:15 03/06/20 24 03/06/2024 urina lysis , dipst ick Nitrite (reference range:) negati ve Not Available [facility] [address] [facility] [address], [place], [address], 03/06/2024 16:22:15 03/06/2003/06/2024 urina lysis , dipst ick Urobilinogen (reference range) 0.2 Not Available [facility] [place] [address] [address] [facility] [address], [place], [address], 03/06/2024 16:22:15 03/06/2003/06/2024 urina lysis , dipst ick Protein (reference range) negati ve Not Available [place] [address] [address] [facility] [address], [place], [address], 03/06/2024 16:22:15 03/06/2003/06/2024 urina lysis , dipst ick pH (reference range 5-8.5) 6.0 Not Available [facility] [place] [address] [address] [facility] [address], [place], [address], 03/06/2024 16:22:15 03/06/2003/06/2024 urina lysis , dipst ick Blood (reference range:) negati ve Not Available [place] [address] [address] [facility] [address], [place], [address], 03/06/2024 16:22:15 03/06/2003/06/2024 urina lysis , dipst ick Specific [place] (reference range) 1.015 Not Available [facility] [place] [address] [address] [facility] [address], [place], [address], 03/06/2024 16:22:15 03/06/2003/06/2024 urina lysis , dipst ick Ketone (reference range) negati ve Not Available [place] [address] [address] [facility] [address], [place], [address], 03/06/2024 16:22:15 03/06/20 24 03/06/2024 urina lysis , dipst ick Bilirubin (reference range) negati ve Not Available [place] [address] [address] [facility] [address], [place], [address], 03/06/2024 16:22:15 03/06/20 24 03/06/2024 urina lysis , dipst ick Glucose (reference range) negati ve Not Available [place] [address] [address] [facility] [address], [place], [address], 03/06/2024 16:22:15 03/06/2003/06/2024 urina lysis , dipst ick Color (reference range: yellow-brown ) Yellow Not Available [facility] [address] [address] [facility] [address], [place], [address], 03/06/2024 16:22:15 05/07/20 24 05/07/2024 urina lysis , dipst ick Leukocytes (reference range) negati ve Not Available [place] [address] [address] [facility] [address], [place], [address], 05/07/2024 16:03:58 05/07/20 24 05/07/2024 urina lysis , dipst ick Nitrite (reference range:) negati ve Not Available [place] [address] [address] [facility] [address], [place], [address], 05/07/2024 16:03:58 05/07/20 24 05/07/2024 urina lysis , dipst ick Urobilinogen (reference range) 0.2 Not Available [place] [address] [address] [facility] [address], [place], [address], 05/07/2024 16:03:58 05/07/20 24 05/07/2024 urina lysis , dipst ick Protein (reference range) negati ve Not Available [place] [address], [place], [address], 05/07/2024 16:03:58 05/07/20 24 05/07/2024 urina lysis , dipst ick pH (reference range 5-8.5) 6.0 Not Available [facility] [place] [address], [place], [address], 05/07/2024 16:03:58 05/07/20 24 05/07/2024 urina lysis , dipst ick Blood (reference range:) negati ve Not Available [place] [address], [place], [address], 05/07/2024 16:03:58 05/07/20 24 05/07/2024 urina lysis , dipst ick Specific [place] (reference range) 1.015 Not Available [facility] [place] [address], [place], [address], 05/07/2024 16:03:58 05/07/20 24 05/07/2024 urina lysis , dipst ick Ketone (reference range) negati ve Not Available [place] [address] [address] [facility] [address], [place], [address], 05/07/2024 16:03:58 05/07/20 24 05/07/2024 urina lysis , dipst ick Bilirubin (reference range) negati ve Not Available [place] [address], [place], [address], 05/07/2024 16:03:58 05/07/20 24 05/07/2024 urina lysis , dipst ick Glucose (reference range) negati ve Not Available [place] [address] [address] [facility] [address], [place], [address], 05/07/2024 16:03:58 05/07/20 24 05/07/2024 urina lysis , dipst ick Color (reference range: yellow-brown ) Yellow Not Available [facility] [address] [facility] [address], [place], [address], 05/07/2024 16:03:58 06/12/19 25 06/11/2024 renal ,bila teral US [facility] [address] [place] [address] Phone: Fax: Name: TATYANA CENTENO Exam Date: : 1959 Age 64 years Gender : F Access ion: [id number] Physic jaki: JACQUE CHAVIS L Facili ty: [facility] Facili ty HSV: Outpat ient Exam: [...] Escalante 025 Thank you for referr ing DWAYNEEULALIA [facility]. Legall y authen ticate d by BIN MICHEL 06-11 15:19: 38 CC'ed Logic: Orderi ng Provid er: PALMIRA Castellanos Attend ing Provid er: PALMIRA Castellanos Referr ing Provid er: PALMIRA Castellanos Admitt ing Provid er: PALMIRA Castellanos [email or web address] [facility] [address] [facility], [place], [address], 06/12/2024 14:56:03 Result Notes None recorded. Problems Name Problem SNOMED Code Status Onset Date Resolution Date Notes Provider Name and Address Organization Details Recorded Time Recurrent urinary tract infection 984045197 Active 2023 Roxanna Crase null, [place] - [facility] [place] & [place] 4 15:18:53 Hypercholester olemia 87827622 Active 2023 Roxanna Crase null, [place] [facility] [place] [facility] [place] 4 15:19:01 Anxiety 10063860 Active 2023 Roxanna Crase null, [place] [facility] [place] 4 15:19:08 Cerebrovascula r accident 863118774 Active 2023 Roxanna Crase null, [place] [facility] [place] 4 15:19:18 Sleep apnea 81760628 Active 2023 Roxanna Crase null, [place] [facility] [place] 4 15:19:26 Gastroesophage al reflux disease 768350712 Active 2023 Roxanna Crase null, [place] [facility] [place] & [place] 4 15:19:31 Depressive disorder 85441723 Active 2023 Roxanna Crase null, [place] [facility] [place] & [place] 4 15:19:38 Arthritis 3229110 Active 2023 Roxanna Crase null, [place] - [facility] [place] & [place] 4 15:19:49 Notes:issues with anestesia Problem Notes None recorded. Procedures Surgical History Date Name Laterality Status Provider Name and Address Organization Details Recorded Time excision of bunion completed Roxannajuanita MASSEY [facility] & [place] 03/06/2024 15:22:19 revision of knee arthroplasty completed Roxannajuanita MASSEY [facility] & [place] 03/06/2024 15:22:29 partial right hip replacement by prosthesis [facility] [place] 03/06/2024 15:22:48 partial replacement of joint of right shoulder with prosthesis completed [facility]anna Julio [facility] [place] 03/06/2024 15:23:03 Appendectomy completed Roxanna Julio MASSEY [facility] & [place] 03/06/2024 15:23:09 complete repair of rotator cuff completed [facility] SHILPA [facility] & [place] 03/06/2024 15:23:19 Imaging Results None recorded. Procedure Notes None recorded. Medical Equipment None Reported. Allergies Allergen ID Allergen Name Allergen Category Reaction Reaction Severity Criticality Documentation Date Start Date Code Code System Note Provider Name and Address Organization Details Recorded Time 766587 Xanax medicatio n Not available Not available Not available 03/06/2024 76898 3 RxNorm SHILPA Virgen [facility] & [place] 4 15:18:04 434428 oxycodone medicatio n Not available Not available Not available 03/06/2024 7804 [facility] [place] 4 15:18:13 Medications Name Sig Start Date [...] % 68 /min 126/77 mm[Hg] Roxanna Kim [place] - [facility] - [place] & [place] 15:38:49 Social History None recorded. Functional Status [...] Diagnosis SNOMED-CT Code Diagnosis ICD10 Code Diagnosis IMO Codes Diagnosis Note [id number] Estefany Chavis NP, [facility] [address] [facility] [address] [place] [address] 03/06/2024 14:53:59 03/06/2024 15:51:35 Recurrent urinary tract infection 253272070 N39.0 UA negativeDi scussed Active bowel habits, probiotics , cranberry supplement s Qday-tid, hygeine, voiding prior to and post sex (wash), and wipe front to back. Schedule Renal US and KUBStart Methenamin e 1 gram bid RTC in 8 weeks for f/u Nocturia 502197320 R35.1 [id number] Estefany Chavis NP, [facility] [address] [facility] [address] [place] [address] 05/07/2024 15:21:55 05/07/2024 16:02:09 Recurrent urinary tract infection 049757816 N39.0 UA negativeRe send Renal US and KUB orderConti nue Methenamin e 1 gram bidRTC in 4 months for f/u [id number] Estefany Chavis NP, [facility] 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 1/20/20 25: Renal US normal Estefany Chavis, JODY, S [address], [place], [address], [facility] - [place] - [place] & [place] 09/03/2024 16:01:04 OBGyn Episode No OBEpisode recorded.
== END 2025-02-26 23:59 | disposition home or self-care (01) ==
LOC: RAD 15:07
PROVIDERS: PCP Nurse Practitioner Family; Visit Provider Nurse Practitioner Family
DX: Z12.31 Encounter for screening mammogram for malignant neoplasm of breast (principal); R92.323 Mammographic fibroglandular density, bilateral breasts
CPT/HCPCS: 77063; 77067